=== PATIENT | male | born 1950 | race Caucasian/White ===

== ENCOUNTER → 2016-07-29 | Outpatient (CLI) | payer OTHER ==
[~2016-07-29] MED LIST: ESCI1TAB10 PO; LEVO75TA5 PO; METF500T5 PO; PRVC10 PO; SILD1TAB11 PO
== END | disposition home or self-care (01) ==
LOC: C.LAB 13:21
PROVIDERS: ATTEND Nurse Practitioner Family
DX: R32 Unspecified urinary incontinence (principal); R35.0 Frequency of micturition

== ENCOUNTER 2016-09-16 00:10 | Emergency (ER) | payer OTHER ==
[~2016-09-16] VITALS: Ht 172.7 cm; Wt 77.3 kg
[2016-09-16 00:10] VITALS: TEMP 36.5; Ht 172.7 cm; Wt 77.3 kg
[~2016-09-16 00:10] MED LIST changes: -SILD1TAB11 PO
--- NOTE | 2016-09-16 00:33 | EMERGENCY ROOM VISIT NOTE ---
History Report prepared by Rudy: Gosia Hawkins Under the Supervision of: Dr. Marcia Ware D.O. First contact with patient: 00:17 Chief Complaint: ALCOHOL OVERDOSE Stated Complaint: ALCOHOL OVERDOSE History of Present Illness The patient is a 66 year old male who presents to the Emergency Room with complaints of alcohol overdose starting [employer]. The patient states that he was found on the bathroom after drinking at [facility] and passed out. The patient states that he drank 4 beers tonight and that he normally drinks about 2 beers a day. The patient states that he was out drinking with and old girlfriend but that she left before he went to the bathroom. The patient states that he remembers nothing from the evening. He states that the last thing he remembers was around 4 hours [employer]. The patient states that the first thing he remembers was waking up to the ambulance. He states that he has never passed out due to drinking in the past. The patient states that he has a history of diabetes but does not take insulin and did not check his blood glucose today. The patient states that he does not experiencing withdrawal symptoms if he does not have alcohol. The patient states that recently he has been more depressed but states that he was not trying to harm himself tonight. The patient states he has a past medical history of high cholesterol and thyroid problems. The patient denies any headache or other trauma. 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 Patient denies any other trauma Review of Systems See HPI for pertinent positives & negatives. A total of 10 systems reviewed and were otherwise negative. Past Medical & Surgical Medical Problems: (1) Diabetes (2) High cholesterol Family History Cancer Diabetes mellitus Gallbladder disease Heart disease Social History Smoking Status: Never Smoker Alcohol Use: none Marital Status: single Housing Status: lives alone Occupation Status: employed Current/Historical Medications Scheduled Escitalopram Oxalate (Lexapro), 20 MG PO QAM Levothyroxine Sodium (Levothyroxine Sodium), 75 MCG PO QAM Metformin Hcl Er (Glucophage Er), 1,000 MG PO BID Pravastatin Sod (Pravastatin Sodium), 10 MG PO HS Scheduled PRN Sildenafil Citrate (Viagra), 1 TAB PO UD PRN for ed Allergies Coded Allergies: Cephalosporins (Verified Allergy, Intermediate, RASH, 09/16/16) Sulfa Drugs (Verified Allergy, Mild, RASH, 09/16/16) Physical Exam Vital Signs Date Time Temp Pulse Resp B/P Pulse Ox O2 Delivery O2 Flow Rate FiO2 09/16/16 04:00 75 18 93/50 96 Room Air 09/16/16 02:54 73 17 114/70 93 Room Air 09/16/16 01:30 80 18 122/77 92 Room Air 09/16/16 00:17 70 09/16/16 00:10 36.5 73 20 126/84 99 Room Air Physical Exam General: Patient is pleasant and smells of alcohol. HEENT: Head - normocephalic and atraumatic. Pupils are equal, round, and reactive to light. Extraocular eye muscles are intact, and sclera are anicteric. Nose - moist nasal mucosa without discharge. Mouth - moist buccal mucosa. Oropharynx is nonerythematous and there is no tonsillar exudate or edema noted. Neck: Supple; no JVD, nuchal rigidity, cervical lymphadenopathy. Heart: Regular rate and rhythm. There is a normal S1 and S2 with no murmurs, clicks, or gallops appreciated. Lungs: Clear to auscultation bilaterally with no wheezes, rales, or rhonchi. Abdomen: Soft, completely nontender, nondistended, with good bowel sounds. There are no palpable pulsatile masses or hepatosplenomegaly. There is no guarding, rigidity, or rebound noted. Extremities: No evidence of cyanosis, clubbing, or edema. There are easily palpable peripheral pulses. Skin: warm and dry with good turgor and no rashes. Medical Decision & Procedures ER Provider Diagnostic Interpretation: CT results as stated below per my review and radiologist interpretation: Preliminary Results Only---See Final Report for Complete Findings: CT HEAD: No acute intracranial abnormality. 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 Mild generalized volume loss. Radiologist: Joel Vargas M.D. Study ready at 0109 and initial results transmitted at 0142 Laboratory Results 09/16/16 00:48 Red Blood Count 4.41, Mean Corpuscular Volume 86.8, Mean Corpuscular Hemoglobin 31.5, Mean Corpuscular Hemoglobin Concent 36.3, Mean Platelet Volume 8.3, Neutrophils (%) (Auto) 59.0, Lymphocytes (%) (Auto) 35.2, Monocytes (%) (Auto) 4.0, Eosinophils (%) (Auto) 1.4, Basophils (%) (Auto) 0.2, Neutrophils # (Auto) 3.39, Lymphocytes # (Auto) 2.02, Monocytes # (Auto) 0.23, Eosinophils # (Auto) 0.08, Basophils # (Auto) 0.01 09/16/16 00:48 Test 09/16/16 00:48 09/16/16 02:39 White Blood Count 5.74 K/uL (4.8-10.8) Red Blood Count 4.41 M/uL (4.7-6.1) Hemoglobin 13.9 g/dL (14.0-18.0) Hematocrit 38.3 % (42-52) Mean Corpuscular Volume 86.8 fL (80-100) Mean Corpuscular Hemoglobin 31.5 pg (25-34) Mean Corpuscular Hemoglobin Concent 36.3 g/dl (32-36) Platelet Count 119 K/uL (130-400) Mean Platelet Volume 8.3 fL (7.4-10.4) Neutrophils (%) (Auto) 59.0 % Lymphocytes (%) (Auto) 35.2 % Monocytes (%) (Auto) 4.0 % Eosinophils (%) (Auto) 1.4 % Basophils (%) (Auto) 0.2 % Neutrophils # (Auto) 3.39 K/uL (1.4-6.5) Lymphocytes # (Auto) 2.02 K/uL (1.2-3.4) Monocytes # (Auto) 0.23 K/uL (0.11-0.59) Eosinophils # (Auto) 0.08 K/uL (0-0.5) Basophils # (Auto) 0.01 K/uL (0-0.2) RDW Standard Deviation 42.1 fL (36.4-46.3) RDW Coefficient of Variation 13.1 % (11.5-14.5) Immature Granulocyte % (Auto) 0.2 % Immature Granulocyte # (Auto) 0.01 K/uL (0.00-0.02) Anion Gap 12.0 mmol/L (3-11) Est Creatinine Clear Calc Drug Dose 69.3 ml/min Estimated GFR () 89.9 Estimated GFR (Non- 77.5 BUN/Creatinine Ratio 13.5 (10-20) Calcium Level 8.9 mg/dl (8.5-10.1) Total Bilirubin 0.4 mg/dl (0.2-1) Aspartate Amino Transf (AST/SGOT) 11 U/L (15-37) Alanine Aminotransferase (ALT/SGPT) 21 U/L (12-78) Alkaline Phosphatase 69 U/L (45-117) Total Creatine Kinase 67 U/L (39-308) Creatine Kinase MB 0.8 ng/ml (0.5-3.6) Creatine Kinase MB Ratio 1.2 (0-3.0) Troponin I < 0.015 ng/ml (0-0.045) Total Protein 7.2 gm/dl (6.4-8.2) Albumin 3.8 gm/dl (3.4-5.0) Globulin 3.4 gm/dl (2.5-4.0) Albumin/Globulin Ratio 1.1 (0.9-2) Thyroid Stimulating Hormone (TSH) 1.370 uIu/ml (0.300-4.500) Salicylates Level < 1.7 mg/dl (2.8-20) Acetaminophen Level < 2 ug/ml (10-30) Ethyl Alcohol mg/dL 194.0 mg/dl (0-3) Urine Color YELLOW Urine Appearance CLEAR (CLEAR) Urine pH 6.0 (4.5-7.5) Urine Specific [place] 1.010 (1.000-1.030) Urine Protein NEG (NEG) Urine Glucose (UA) NEG (NEG) Urine Ketones TRACE (NEG) Urine Occult Blood NEG (NEG) Urine Nitrite NEG (NEG) Urine Bilirubin NEG (NEG) Urine Urobilinogen NEG (NEG) Urine Leukocyte Esterase NEG (NEG) Urine Opiates Screen NEG (NEG) Urine Methadone, Qualitative NEG (NEG) Urine Barbiturates NEG (NEG) Urine Phencyclidine (PCP) Level NEG (NEG) Ur Amphetamine/Methamphetamine NEG (NEG) MDMA (Ecstasy) Screen NEG (NEG) Urine Benzodiazepines Screen NEG (NEG) Urine Cocaine Metabolite NEG (NEG) Urine Marijuana (THC) NEG (NEG) Laboratory results per my review. ECG Indication: toxicologic (alcohol overdose) Rate (beats per minute): 68 Rhythm: normal sinus Findings: no acute ischemic change, no ectopy ED Course 0022: Past medical records reviewed. The patient was evaluated in room A10. A complete history and physical exam was performed. Labs were drawn as above. The patient for CT scan of the brain as described above. He was observing the case monitor and pulse oximeter. He had a twelve-lead EKG as described above. 0224: I reevaluated the patient and he was sleeping and hemodynamically stable. 0258: I reevaluated the patient and he was awake. I discussed the results with the patient. He states that he now believes he only had 2 drinks tonight. 0400: Upon reevaluation, the patient is hemodynamically stable. I discussed findings and results with him. He verbalized agreement of the treatment plan. The patient was discharged home. Medical Decision The patient is a 66 year old male who presents to the ED with alcohol overdose. Differential diagnosis includes alcohol overdose, drug intoxication, rhabdomyolysis, suicide attempt. Labs: Salicylates and Tylenol negative Normal Thyroid studies Normal LFTs Negative cardiac enzymes Glucose 143 Normal renal function Slightly anemic hemoglobin 13.9 Normal white blood cell count. Urine Tox Screen Negative Urinalysis positive for ketones. This is a 66-year-old male patient who was found passed out in the bathroom at [facility]. The patient does not remember what happened. He believes that he may have only had between 2 and 4 beers. He thought that he was asleep at home. He denies any trauma. He does admit to being depressed but denies this as being a suicide attempt. His urine tox screen was negative. The patient was given some time sober-appearing the emergency department. He will be discharged home by taxi. I've asked him to stop drinking over the next 1-2 weeks and have close follow-up with his PCP. Impression Primary Impression: Alcohol overdose Additional Impression: Unresponsive episode Scribe Attestation The scribe's documentation has been prepared under my direction and personally reviewed by me in its entirety. I confirm that the note above accurately reflects all work, treatment, procedures, and medical decision making performed by me. Departure Information Dispostion Home / Self-Care Referrals Jina Nino M.D. (PCP) Forms HOME CARE DOCUMENTATION FORM, IMPORTANT VISIT INFORMATION Patient Instructions My [facility] Additional Instructions Rest. Take a bland diet and plenty of clear liquids Avoid alcohol use over the next 1-2 weeks If you feel increasingly depressed, follow up with your PCP or call [facility] - for crisis evaluation Problem Qualifiers
[2016-09-16] MEDS ORDERED: METF500T5 PO (00:51)
[2016-09-16] MEDS ORDERED: SILD1TAB11 PO (00:51)
[2016-09-16 01:01] LABS: BASO % 0.2 %; BASO ABS # 0.01 K/uL (0-0.2); COMPLETE YES; EOS % 1.4 %; HEMATOCRIT 38.3 % (42-52); IG% 0.2 %; LYMPH % 35.2 %; LYMPH ABS # 2.02 K/uL (1.2-3.4); MEAN CELL VOLUME 86.8 fL (80-100); MEAN CORPUSCULAR HEMOGLOBIN 31.5 pg (25-34); MEAN CORPUSCULAR HGB CONC 36.3 g/dl (32-36); MEAN PLATELET VOLUME 8.3 fL (7.4-10.4); PLATELET COUNT 119 K/uL (130-400); RED BLOOD COUNT 4.41 M/uL (4.7-6.1); WHITE BLOOD COUNT 5.74 K/uL (4.8-10.8)
[2016-09-16 01:23] LABS: ALT/SGPT 21 U/L (12-78); AST/SGOT 11 U/L (15-37); BLOOD UREA NITROGEN 13 mg/dl (7-18); BUN/CREATININE RATIO 13.5 (10-20); CALCIUM 8.9 mg/dl (8.5-10.1); CARBON DIOXIDE 24 mmol/L (21-32); CHLORIDE 102 mmol/L (98-107); GLUCOSE 143 mg/dl (70-99); POTASSIUM 3.7 mmol/L (3.5-5.1); SODIUM 138 mmol/L (136-145)
[2016-09-16 01:24] LABS: ACETAMINOPHEN < 2 ug/ml (10-30)
[2016-09-16 01:34] LABS: ALB/GLOB RATIO 1.1 (0.9-2); ALKALINE PHOSPHATASE 69 U/L (45-117); CKMB/CK RATIO 1.2 (0-3.0)
[2016-09-16 02:49] LABS: URINE APPEARANCE CLEAR (CLEAR); URINE BILIRUBIN NEG (NEG); URINE COLOR YELLOW; URINE NITRITE NEG (NEG); UROBILINOGEN NEG (NEG)
[2016-09-16 03:00] LABS: MANUAL MICROSCOPIC REQUIRED? NO; REVIEW REQ? NO
[2016-09-16 03:15] LABS: BENZODIAZEPINE, URINE NEG (NEG); COCAINE,URINE NEG (NEG); PHENCYCLIDINE, URINE NEG (NEG)
[2016-09-16 04:00] VITALS: BP 93/50; PULSE 75; O2SAT 96
--- NOTE | 2016-09-16 07:07 | DIAGNOSTIC IMAGING REPORT ---
CT SCAN OF THE BRAIN WITHOUT IV CONTRAST CLINICAL HISTORY: Change in mental status. Unresponsive episode. COMPARISON STUDY: No priors. TECHNIQUE: Unenhanced axial CT scan of the brain is performed from the vertex to the skull base. CT DOSE: 651.12 mGy.cm FINDINGS: Brain parenchyma: There are age-related involutional changes noting minimal subcortical and periventricular microangiopathic change. There is no hemorrhage, mass effect, or evidence of acute territorial ischemia by CT criteria. Luevano-white matter is preserved. No extra-axial fluid collection is seen. Ventricles, sulci, cisterns: Prominent secondary to involutional change. Megacisterna magna is incidentally noted. Intracranial vasculature: There is mild atherosclerotic calcification of the cavernous carotid arteries. Calvarium: Unremarkable. Sinuses and mastoids: There is trace mucosal thickening within the left maxillary antrum and the left sphenoid sinus. The remaining visualized paranasal sinuses are clear. The mastoid air cells are well pneumatized. Orbits: The bony orbits are grossly intact. IMPRESSION: There is no hemorrhage, mass effect, or evidence of acute territorial ischemia by CT criteria. Electronically signed by: Doc Mckeon M.D. 09/16/2016 7:06 AM Dictated Date/Time: 09/16/2016 7:04 AM
== END 2016-09-16 04:08 | disposition home or self-care (01) ==
LOC: EDBD 00:10 → C.EDA 00:11
DX: T51.0X1A Toxic effect of ethanol, accidental (unintentional), initial encounter (principal); E11.9 Type 2 diabetes mellitus without complications; E78.00 Pure hypercholesterolemia, unspecified; Z88.2 Allergy status to sulfonamides; Z83.3 Family history of diabetes mellitus; Z82.49 Family history of ischemic heart disease and other diseases of the circulatory system; Z79.899 Other long term (current) drug therapy

== ENCOUNTER 2017-07-28 17:11 | Inpatient (IN) | payer OTHER ==
[~2017-07-28] VITALS: Ht 172.7 cm; Wt 80.5 kg
[~2017-07-28 17:11] MED LIST changes: +SILD1TAB11 PO
--- NOTE | 2017-07-28 17:54 | EMERGENCY ROOM VISIT NOTE ---
History Report prepared by Rudy: Marcos Gil Under the Supervision of: Dr. Josh Hayden M.D. First contact with patient: 17:31 Chief Complaint: GI ASSESSMENT Stated Complaint: GALL BLADDER Nursing Triage Summary: patient has been having pain in the abdomen for a couple days in the right mid abdomen. no nausea or vomiting. has been able to drink but unalbe to eat. also with low grade fever and night sweets. general body aches with minor cough and head ache for about 5 days History of Present Illness The patient is a 66 year old white male with a past medical history of anxiety, HTN, DM, HLD, alcohol abuse who presents to the ED with a cc of constant RUQ abdominal soreness beginning 6 days ago. Pt states his symptoms started in his diaphragm, so he took an acid resident care director. He reports his symptoms resolved. Pt notes his symptoms then developed in his RUQ that is localized. He states he has been developing flu-like symptoms for the past 8 days. The patient reports he was evaluated by his PCP today and had an MRI and US performed. He notes his MRI showed gallstones, and he was told to come to the ED per his US results. Positive increased pain with coughing, cough, decreased appetite for the past 6 days, typically consumes two beers a night, short of breath, and weakness. Negative recent bowel movement, alcohol consumption in the past week, recent travel, recent antibiotic use, medication changes, falling, hurting himself, tobacco use. Source of History: patient Onset: 6 days ago Position: abdomen (RUQ) Quality: other (soreness) Timing: constant Modifying Factors (Worsening): other (coughing) Associated Symptoms: + cough, + SOB, + weakness Note: Associated symptoms: decreased appetite Denies: recent bowel movement, recent travel, recent antibiotic use, medication changes, falling, hurting himself Review of Systems See HPI for pertinent positives and negatives. A total of ten systems were reviewed and were otherwise negative. Past Medical & Surgical Medical Problems: (1) Cholecystitis (2) DM type 2 (diabetes mellitus, type 2) (3) Dyslipidemia (4) Hypothyroidism Surgical Problems: (1) H/O discectomy (2) History of inguinal hernia repair, bilateral Family History Cancer Diabetes mellitus Gallbladder disease Heart disease Social History Smoking Status: Never Smoker Alcohol Use: occasionally Marital Status: single Housing Status: lives alone Occupation Status: employed Current/Historical Medications Scheduled Alfuzosin Hcl (Alfuzosin Hcl Er), 1 TAB PO DAILY Aspirin (Aspirin EC Low Dose), 81 MG PO DAILY Escitalopram Oxalate (Lexapro), 20 MG PO QAM Levothyroxine Sodium (Levothyroxine Sodium), 75 MCG PO QAM Metformin Hcl Er (Glucophage Er), 1,000 MG PO BID Pravastatin Sod (Pravastatin Sodium), 10 MG PO HS Scheduled PRN Sildenafil Citrate (Viagra), 1 TAB PO UD PRN for ed Allergies Coded Allergies: Cephalosporins (Verified Allergy, Intermediate, RASH, 07/28/17) Sulfa Drugs (Verified Allergy, Mild, RASH, 07/28/17) Physical Exam Vital Signs Date Time Temp Pulse Resp B/P (MAP) Pulse Ox O2 Delivery O2 Flow Rate FiO2 07/28/17 19:32 79 07/28/17 19:15 86 16 137/86 93 Room Air 07/28/17 17:22 37.0 98 20 119/68 93 Room Air Physical Exam GENERAL: Awake, alert, well-appearing, NAD HENT: Normocephalic, atraumatic. EYES: Normal conjunctiva. Sclera non-icteric. NECK: Supple. No nuchal rigidity. FROM. RESPIRATORY: CTAB, no rhonchi, wheezing, crackles CARDIAC: RRR, no MRG ABDOMEN: Soft, ND, BS+. Reproducible RUQ TTP MSK: No chest wall TTP, no LE edema. No CVA TTP NEURO: GCS 15, CN 2-12 intact, moves all 4s on command SKIN: No rash or jaundice noted. Medical Decision & Procedures ER Provider Diagnostic Interpretation: X-ray: Per my interpretation, radiologist review. CHEST ONE VIEW PORTABLE CLINICAL HISTORY: Pain, radiating to the abdomen. COMPARISON STUDY: Chest x-ray dated 12/11/2011, outside CT scan dated 07/21/2017 FINDINGS: The heart is at the upper limits of normal in size. There is mild elevation of the right hemidiaphragm. There are associated right lower lobe airspace opacities, likely atelectatic although an infectious/inflammatory process could appear similar. A linear opacity at the left lung base is felt to be atelectatic. There is no free intraperitoneal air. IMPRESSION: 1. No evidence of free intraperitoneal air 2. Mild elevation of the right hemidiaphragm with associated right basilar opacities. Electronically signed by: Mario Harris M.D. 07/28/2017 6:30 PM Dictated Date/Time: 07/28/2017 6:28 PM Laboratory Results 07/28/17 18:16 Red Blood Count 4.47, Mean Corpuscular Volume 90.2, Mean Corpuscular Hemoglobin 33.1, Mean Corpuscular Hemoglobin Concent 36.7, Mean Platelet Volume 8.9, Neutrophils (%) (Auto) 85.8, Lymphocytes (%) (Auto) 9.3, Monocytes (%) (Auto) 4.7, Eosinophils (%) (Auto) 0.0, Basophils (%) (Auto) 0.0, Neutrophils # (Auto) 8.34, Lymphocytes # (Auto) 0.90, Monocytes # (Auto) 0.46, Eosinophils # (Auto) 0.00, Basophils # (Auto) 0.00 07/28/17 18:16 Test 07/28/17 18:12 07/28/17 18:16 07/28/17 19:20 Influenza Type A Antigen Neg for Influ A (NEG) Influenza Type B Antigen Neg for Influ B (NEG) White Blood Count 9.72 K/uL (4.8-10.8) Red Blood Count 4.47 M/uL (4.7-6.1) Hemoglobin 14.8 g/dL (14.0-18.0) Hematocrit 40.3 % (42-52) Mean Corpuscular Volume 90.2 fL (80-100) Mean Corpuscular Hemoglobin 33.1 pg (25-34) Mean Corpuscular Hemoglobin Concent 36.7 g/dl (32-36) Platelet Count 145 K/uL (130-400) Mean Platelet Volume 8.9 fL (7.4-10.4) Neutrophils (%) (Auto) 85.8 % Lymphocytes (%) (Auto) 9.3 % Monocytes (%) (Auto) 4.7 % Eosinophils (%) (Auto) 0.0 % Basophils (%) (Auto) 0.0 % Neutrophils # (Auto) 8.34 K/uL (1.4-6.5) Lymphocytes # (Auto) 0.90 K/uL (1.2-3.4) Monocytes # (Auto) 0.46 K/uL (0.11-0.59) Eosinophils # (Auto) 0.00 K/uL (0-0.5) Basophils # (Auto) 0.00 K/uL (0-0.2) RDW Standard Deviation 42.3 fL (36.4-46.3) RDW Coefficient of Variation 12.9 % (11.5-14.5) Immature Granulocyte % (Auto) 0.2 % Immature Granulocyte # (Auto) 0.02 K/uL (0.00-0.02) Anion Gap 9.0 mmol/L (3-11) Est Creatinine Clear Calc Drug Dose 44.7 ml/min Estimated GFR () 52.9 Estimated GFR (Non- 45.6 BUN/Creatinine Ratio 16.9 (10-20) Calcium Level 8.8 mg/dl (8.5-10.1) Magnesium Level 2.4 mg/dl (1.8-2.4) Total Bilirubin 1.0 mg/dl (0.2-1) Direct Bilirubin 0.4 mg/dl (0-0.2) Aspartate Amino Transf (AST/SGOT) 32 U/L (15-37) Alanine Aminotransferase (ALT/SGPT) 35 U/L (12-78) Alkaline Phosphatase 109 U/L (45-117) Total Protein 7.8 gm/dl (6.4-8.2) Albumin 2.7 gm/dl (3.4-5.0) Lipase 128 U/L (73-393) Thyroid Stimulating Hormone (TSH) 4.210 uIu/ml (0.300-4.500) Urine Color ORANGE Urine Appearance CLOUDY (CLEAR) Urine pH 5.0 (4.5-7.5) Urine Specific [place] 1.028 (1.000-1.030) Urine Protein 3+ (NEG) Urine Glucose (UA) NEG (NEG) Urine Ketones 1+ (NEG) Urine Occult Blood NEG (NEG) Urine Nitrite POS (NEG) Urine Bilirubin NEG (NEG) Urine Urobilinogen POS (NEG) Urine Leukocyte Esterase TRACE (NEG) Urine WBC (Auto) 5-10 /hpf (0-5) Urine RBC (Auto) 0-4 /hpf (0-4) Urine Hyaline Casts (Auto) 10-30 /lpf (0-5) Urine Epithelial Cells (Auto) >30 /lpf (0-5) Urine Bacteria (Auto) NEG (NEG) Urine Renal Epithelial Cells /lpf (0-5) Urine Pathogenic Casts 1-5 GRANULAR CASTS /lpf (0) Urine Mucus PRESENT (NONE PRSENT) Urine Yeast (Auto) (NONE PRSENT) Laboratory results reviewed by me Medications Administered Medications (Trade) Dose Ordered Sig/Evens Route Start Time Stop Time Status Last Admin Dose Admin Potassium Chloride (Klor-Con M10) 40 meq NOW STAT PO 07/28/17 19:44 07/28/17 20:48 DC 07/28/17 21:50 40 MEQ ED Course 1733: The patient was evaluated in room A04B. A complete history and physical exam was performed. 1916: I reevaluated the patient. He is resting comfortably. I discussed his exam findings and treatment plan. He agreed to the treatment plan. The patient will be evaluated for further management and care. 1927: I discussed the patient's case with Dr. Basurto, General Surgery. They will evaluate the patient but requested he also be evaluated by medicine. 1946: I discussed the patient's [facility] The patient will be evaluated for further management and care. Medical Decision The patient is a 66 year old white male with a past medical history of anxiety, HTN, DM, HLD, alcohol abuse who presents to the ED with a cc of constant RUQ abdominal soreness beginning 6 days ago. Differential diagnosis: Etiologies such as appendicitis, diverticulitis, PUD, biliary pathology, UTI, pancreatitis, obstruction, mesenteric ischemia, aortic pathology, infections, inflammatory bowel disease, renal colic, as well as others were entertained. Patient was seen and evaluated the bedside. Patient was complaints of right upper quadrant pain and did have an outpatient ultrasound. Upon reviewing the ultrasound the patient does have findings consistent with acute cholecystitis as the patient does have some gallbladder wall thickness, pericholecystic fluid , and a dilated CBD at 13 mm. Patient did have blood work that was completed. Patient did have mild elevation in his d bili. Patient's other labs fairly unremarkable. Patient was given some Cipro and Flagyl as he does have cephalosporin allergy. I did contact the on-call surgeon who requested a medical admission and preoperative clearance. I did speak with the medicine service who agreed to evaluate and treat the patient. Medication Reconcilliation Current Medication List: was personally reviewed by me Blood Pressure Screening Patient's blood pressure: Elevated blood pressure Blood pressure disposition: Elevated BP felt to be situational Consults Time Called: 1911 Consulting Physician: Dr. Basurto, General Surgery Returned Call: 1927 I discussed the patient's case with Dr. Basurto, General Surgery. They will evaluate the patient but requested he also be evaluated by medicine. Additional Consults: Time Called: 1935 Consulted Physician: Terell Orta Hospitalist Returned Call: 1946 Additional Comments: I [facility] the patient's [facility] The patient will be evaluated for further management and care. Impression Primary Impression: Acute cholecystitis Additional Impressions: RUQ abdominal pain Hyponatremia Chronic alcohol abuse Scribe Attestation The scribe's documentation has been prepared under my direction and personally reviewed by me in its entirety. I confirm that the note above accurately reflects all work, treatment, procedures, and medical decision making performed by me. Departure Information Dispostion Being Evaluated By Hospitalist Referrals Brown Brown D.O. (PCP) Patient Instructions My [facility] Problem Qualifiers
--- NOTE | 2017-07-28 18:31 | DIAGNOSTIC IMAGING REPORT ---
CHEST ONE VIEW PORTABLE CLINICAL HISTORY: Pain, radiating to the abdomen. COMPARISON STUDY: Chest x-ray dated 12/11/2011, outside CT scan dated 07/21/2017 FINDINGS: The heart is at the upper limits of normal in size. There is mild elevation of the right hemidiaphragm. There are associated right lower lobe airspace opacities, likely atelectatic although an infectious/inflammatory process could appear similar. A linear opacity at the left lung base is felt to be atelectatic. There is no free intraperitoneal air. IMPRESSION: 1. No evidence of free intraperitoneal air 2. Mild elevation of the right hemidiaphragm with associated right basilar opacities. Electronically signed by: Mario Harris M.D. 07/28/2017 6:30 PM Dictated Date/Time: 07/28/2017 6:28 PM
[2017-07-28 18:47] LABS: HEMATOCRIT 40.3 % (42-52); HEMOGLOBIN 14.8 g/dL (14.0-18.0); IG# 0.02 K/uL (0.00-0.02); LYMPH % 9.3 %; MEAN CELL VOLUME 90.2 fL (80-100); MEAN CORPUSCULAR HEMOGLOBIN 33.1 pg (25-34); MEAN CORPUSCULAR HGB CONC 36.7 g/dl (32-36); MEAN PLATELET VOLUME 8.9 fL (7.4-10.4); MONO % 4.7 %; MONO ABS # 0.46 K/uL (0.11-0.59); NEUT % 85.8 %; NEUT ABS # 8.34 K/uL (1.4-6.5); PLATELET COUNT 145 K/uL (130-400); RED CELL DISTRIBUTION WIDTH CV 12.9 % (11.5-14.5); RED CELL DISTRIBUTION WIDTH SD 42.3 fL (36.4-46.3); WHITE BLOOD COUNT 9.72 K/uL (4.8-10.8)
[2017-07-28 18:48] LABS: ALBUMIN 2.7 gm/dl (3.4-5.0); CALCIUM 8.8 mg/dl (8.5-10.1); CREATININE 1.55 mg/dl (0.60-1.40); POTASSIUM 3.3 mmol/L (3.5-5.1)
[2017-07-28 18:51] LABS: TOTAL PROTEIN 7.8 gm/dl (6.4-8.2)
[2017-07-28 18:57] LABS: INFLUENZA B ANTIGEN Neg for Influ B (NEG)
[2017-07-28] MEDS ORDERED: METRONIDAZOLE 500MG / 100ML NSS IV STA (19:30)
[2017-07-28] MEDS ORDERED: CIPROFLOXACIN 400MG / 200ML D5W IV STA (19:30)
[2017-07-28] MEDS ORDERED: POTASSIUM CHLORIDE 10 MEQ TABCR PO STA (19:44)
[2017-07-28] MEDS ORDERED: ALFU1TAB2 PO (20:09)
[2017-07-28] MEDS ORDERED: ASPEC81 PO (20:09)
--- NOTE | 2017-07-28 20:31 | History and Physical ---
History & Physical Date & Time of Service: Jul 28, 2017 ~ 20:00 Chief Complaint: Referred by PCP for Gallbladder Primary Care Physician: Brown Brown D.O. History of Present Illness 66 year old male who presents to the ED by referral of his PCP after outpatient US was positive for acute cholecystitis. Patient reports he has been sick for the past 8 days. Initially starting with cough, congestion, and headache. Dry non productive cough persists. Shortly after he developed mid epigastric pain that was relieved with TUMS. He then developed RUQ pain. He has had a very poor appetite and has had very little to eat or drinks. He denies nausea, vomiting, or diarrhea. He has had chills and episodes of diaphoresis but did not take his temperature. He denies chest pain and shortness of breath. No lightheadedness, dizziness, or syncopal event. No urinary symptoms. Patient saw his PCP today who ordered an outpatient RUQ US that showed acute cholecystitis. He was then referred to the ED for further evaluation. In the ED, labs show an ASHLEE and hyponatremia. Vitals are stable. Past Medical/Surgical History Medical Problems: (1) DM type 2 (diabetes mellitus, type 2) Status: Chronic (2) Dyslipidemia Status: Chronic (3) Hypothyroidism Status: Chronic Surgical Problems: (1) H/O discectomy Status: Chronic (2) History of inguinal hernia repair, bilateral Status: Chronic Family History Diabetes mellitus MOTHER FH: prostate cancer FATHER Social History Smoking Status: Never Smoker Alcohol Use: 1-2 beers/day Immunizations History of Influenza Vaccine: Yes Influenza Vaccine Date: Mar 31, 2017 History of Tetanus Vaccine?: Yes Tetanus Immunization Date: Jan 08, 2010 History of Pneumococcal: Yes Pneumococcal Date: Feb 15, 2016 Multi-Drug Resistant Organisms History of MDRO: No Allergies Coded Allergies: Cephalosporins (Verified Allergy, Intermediate, RASH, 07/28/17) Sulfa Drugs (Verified Allergy, Mild, RASH, 07/28/17) Home Medications Scheduled Alfuzosin Hcl (Alfuzosin Hcl Er), 1 TAB PO DAILY Aspirin (Aspirin EC Low Dose), 81 MG PO DAILY Escitalopram Oxalate (Lexapro), 20 MG PO QAM Levothyroxine Sodium (Levothyroxine Sodium), 75 MCG PO QAM Metformin Hcl Er (Glucophage Er), 1,000 MG PO BID Pravastatin Sod (Pravastatin Sodium), 10 MG PO HS Scheduled PRN Sildenafil Citrate (Viagra), 1 TAB PO UD PRN for ed Review of Systems ROS per HPI, all other systems reviewed and negative Physical Exam Vital Signs Date Time Temp Pulse Resp B/P (MAP) Pulse Ox O2 Delivery O2 Flow Rate FiO2 07/28/17 19:32 79 07/28/17 19:15 86 16 137/86 93 Room Air 07/28/17 17:22 37.0 98 20 119/68 93 Room Air General Appearance: WD/WN, no apparent distress Head: normocephalic, atraumatic Eyes: normal inspection, EOMI, sclerae normal ENT: hearing grossly normal, + pertinent finding (mucous membranes dry) Neck: supple, no JVD, trachea midline Respiratory/Chest: lungs clear, normal breath sounds, no respiratory distress Cardiovascular: regular rate, rhythm, no edema, normal peripheral pulses Abdomen/GI: normal bowel sounds, soft, no organomegaly, + tenderness (RUQ) Extremities/Musculoskelatal: normal inspection, no calf tenderness, normal capillary refill Neurologic/Psych: no motor/sensory deficits, alert, normal mood/affect, oriented x 3 Skin: normal color, warm/dry Diagnostics Laboratory Results Results Past 24 Hours Test 07/28/17 18:12 07/28/17 18:16 07/28/17 19:20 Range/Units Influenza Type A Antigen Neg for Influ A NEG Influenza Type B Antigen Neg for Influ B NEG White Blood Count 9.72 4.8-10.8 K/uL Red Blood Count 4.47 4.7-6.1 M/uL Hemoglobin 14.8 14.0-18.0 g/dL Hematocrit 40.3 42-52 % Mean Corpuscular Volume 90.2 80-100 fL Mean Corpuscular Hemoglobin 33.1 25-34 pg Mean Corpuscular Hemoglobin Concent 36.7 32-36 g/dl Platelet Count 145 130-400 K/uL Mean Platelet Volume 8.9 7.4-10.4 fL Neutrophils (%) (Auto) 85.8 % Lymphocytes (%) (Auto) 9.3 % Monocytes (%) (Auto) 4.7 % Eosinophils (%) (Auto) 0.0 % Basophils (%) (Auto) 0.0 % Neutrophils # (Auto) 8.34 1.4-6.5 K/uL Lymphocytes # (Auto) 0.90 1.2-3.4 K/uL Monocytes # (Auto) 0.46 0.11-0.59 K/uL Eosinophils # (Auto) 0.00 0-0.5 K/uL Basophils # (Auto) 0.00 0-0.2 K/uL RDW Standard Deviation 42.3 36.4-46.3 fL RDW Coefficient of Variation 12.9 11.5-14.5 % Immature Granulocyte % (Auto) 0.2 % Immature Granulocyte # (Auto) 0.02 0.00-0.02 K/uL Sodium Level 129 136-145 mmol/L Potassium Level 3.3 3.5-5.1 mmol/L Chloride Level 95 98-107 mmol/L Carbon Dioxide Level 25 21-32 mmol/L Anion Gap 9.0 3-11 mmol/L Blood Urea Nitrogen 26 7-18 mg/dl Creatinine 1.55 0.60-1.40 mg/dl Est Creatinine Clear Calc Drug Dose 44.7 ml/min Estimated GFR () 52.9 Estimated GFR (Non- 45.6 BUN/Creatinine Ratio 16.9 10-20 Random Glucose 139 70-99 mg/dl Calcium Level 8.8 8.5-10.1 mg/dl Magnesium Level 2.4 1.8-2.4 mg/dl Total Bilirubin 1.0 0.2-1 mg/dl Direct Bilirubin 0.4 0-0.2 mg/dl Aspartate Amino Transf (AST/SGOT) 32 15-37 U/L Alanine Aminotransferase (ALT/SGPT) 35 12-78 U/L Alkaline Phosphatase 109 45-117 U/L Total Protein 7.8 6.4-8.2 gm/dl Albumin 2.7 3.4-5.0 gm/dl Lipase 128 73-393 U/L Urine Color ORANGE Urine Appearance CLOUDY CLEAR Urine pH 5.0 4.5-7.5 Urine Specific [place] 1.028 1.000-1.030 Urine Protein 3+ NEG Urine Glucose (UA) NEG NEG Urine Ketones 1+ NEG Urine Occult Blood NEG NEG Urine Nitrite POS NEG Urine Bilirubin NEG NEG Urine Urobilinogen POS NEG Urine Leukocyte Esterase TRACE NEG Urine WBC (Auto) 5-10 0-5 /hpf Urine RBC (Auto) 0-4 0-4 /hpf Urine Hyaline Casts (Auto) 10-30 0-5 /lpf Urine Epithelial Cells (Auto) >30 0-5 /lpf Urine Bacteria (Auto) NEG NEG Urine Renal Epithelial Cells 0-5 /lpf Urine Pathogenic Casts 1-5 GRANULAR CASTS 0 /lpf Urine Mucus PRESENT NONE PRSENT Urine Yeast (Auto) NONE PRSENT Microbiology Results 07/28/17 Urine Culture, Received Pending Diagnostic Radiology RUQ US (outpatient) IMPRESSION 1. Cholelithiasis, positive sonographic Wasserman's sign, diffusely thickened gallbladder wall and pericholecystic fluid and findings of gallbladder hydrops with nonmobile stone in the neck of the gallbladder. Findings are suggestive of acute cholecystitis. Findings were discussed with the referring clinician Dr. Cardenas at 4:15 p.m. on 07/28/2017 who expressed understanding. Surgical consultation and follow-up advised. 2. Dilated common bile duct measuring up to 13 mm in the iggy hepatis. The distal portion of the common bile duct is not visualized. Distal obstruction is not excluded. Correlation with obstructive enzymes would be helpful. 3. 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 4. Diffusely increased echogenicity of the liver. Nonspecific finding. Fatty infiltration is a consideration among other diffuse hepatocellular processes. 5. Normal sonographic evaluation of right kidney. 6. Limited evaluation of pancreas. CXR IMPRESSION: 1. No evidence of free intraperitoneal air 2. Mild elevation of the right hemidiaphragm with associated right basilar opacities. Impression Assessment and Plan ACUTE CHOLECYSTITIS - outpatient US as above - surgery notified by ED - labs do not suggest CBD obstruction - s/p Cipro and Flagyl in the ED, will continue with Unasyn - NPO ASHLEE, HYPONATREMIA, HYPOKALEMIA - prerenal due to poor PO intake - IVF, replace K+, follow labs DM - hgb a1c 5.7 01/2017 - hold oral agents and utilize SSI while hospitalized HYPOTHYROIDISM - continue levothyroxine DVT PROPHYLAXIS - SCDs due to invasive procedure DISPO - In my clinical judgment this beneficiary meets acute admission criteria, established by [facility], that includes being hospitalized through two midnights. Assessment/Plan IM ATTENDING : Patient seen and examined. History obtained form the patient and records. Preceding documentation by ARNOLD Mak, reviewed. FINAL ASSESSMENT AND PLAN as follows: 1. Acute calculous cholecystitis, no sepsis. 2. Hypokalemia. Acute renal failure. clinical dehydration secondary to illness. 3. DM 2 on oral medications well controlled as of recent outpx HgA1c of 5.7 last January 2017. 6. daily alcohol intake as per records. Patient denies abuse. GMF Unasyn. Surgery consult. RE acute cholecystitis (ER provider already in touch with Dr. Basurto, surgeon on-call who requested for a preop medical evaluation.) No medical contraindication to contemplated procedure. replace potassium. Monitor creatinine response to IV fluids ISS BG goal 140-180. DT precautions. DVT prophylaxis, Heparin subQ. Full code.
[2017-07-28] MEDS ORDERED: AMPICILLIN/SULBACTAM SOD INJ 3,000 MG in SODIUM CHLORIDE 0.9% 100ML 100 ML IV SCH (21:00)
[2017-07-28] MEDS ORDERED: INSULIN ASPART 100 UNITS/ML 3 ML PEN SC ONE ×2 (21:05→22:57)
[2017-07-28] MEDS ORDERED: THIAMINE HCL 100 MG/ML 2 ML VIAL IV STA (21:05)
[2017-07-28] MEDS ORDERED: GLUCOSE 10 TABS/TUBE PO PRN (21:15)
[2017-07-28] MEDS ORDERED: DEXTROSE 50% 50 ML SYR IV PRN (21:15)
[2017-07-28] MEDS ORDERED: GLUCOSE 40% GEL 15 GM TUBE PO PRN (21:15)
[2017-07-28] MEDS ORDERED: PROCHLORPERAZINE INJ 5 MG in SYRINGE 4 ML IV PRN (21:15)
[2017-07-28] MEDS ORDERED: ACETAMINOPHEN 325 MG TAB PO PRN (21:15)
[2017-07-28] MEDS ORDERED: GLUCAGON FOR INJ 1 MG VIAL SQ PRN (21:15)
[2017-07-28] MEDS ORDERED: LORAZEPAM 2 MG/ML 1 ML VIAL IV PRN (21:15)
[2017-07-28] MEDS ORDERED: GABAPENTIN 600 MG TAB PO SCH (21:15)
[2017-07-28] MEDS ORDERED: CIPROFLOXACIN 400MG / 200ML D5W ONE (21:43)
[2017-07-28] MEDS ORDERED: METRONIDAZOLE 500MG / 100ML NSS ONE (21:43)
--- NOTE | 2017-07-28 21:53 | Surgery Consultation ---
Consultation Date of Consultation: Jul 28, 2017. Attending Physician: History of Present Illness 66 year old male who presents to the ED by referral of his PCP after outpatient US was positive for acute cholecystitis. Patient reports he has been sick for the past 8 days. Initially starting with cough, congestion, and headache. Dry non productive cough persists. Shortly after he developed mid epigastric pain that was relieved with TUMS. He then developed RUQ pain. He has had a very poor appetite and has had very little to eat or drinks. He denies nausea, vomiting, or diarrhea. He has had chills and episodes of diaphoresis but did not take his temperature. He denies chest pain and shortness of breath. No lightheadedness, dizziness, or syncopal event. No urinary symptoms. Patient saw his PCP today who ordered an outpatient RUQ US that showed acute cholecystitis. He was then referred to the ED for further evaluation. In the ED, labs show an ASHLEE and hyponatremia. Vitals are stable. I reviewed pt's H/P with pt, pt is still have RUQ pain, with some nausea, no vomiting, some lower T, pt denies diarrhea, Past Medical/Surgical History Medical Problems: (1) Alcohol overdose Status: Acute (2) Encounter for removal of sutures Status: Acute (3) Encounter for removal of sutures Status: Acute (4) Unresponsive episode Status: Acute Family History Diabetes mellitus MOTHER FH: prostate cancer FATHER Social History Smoking Status: Never Smoker Smokeless Tobacco Use: No Alcohol Use: none Drug Use: none Housing Status: lives alone Allergies Coded Allergies: Cephalosporins (Verified Allergy, Intermediate, RASH, 07/28/17) Sulfa Drugs (Verified Allergy, Mild, RASH, 07/28/17) Home Medications Scheduled Alfuzosin Hcl (Alfuzosin Hcl Er), 1 TAB PO DAILY Aspirin (Aspirin EC Low Dose), 81 MG PO DAILY Escitalopram Oxalate (Lexapro), 20 MG PO QAM Levothyroxine Sodium (Levothyroxine Sodium), 75 MCG PO QAM Metformin Hcl Er (Glucophage Er), 1,000 MG PO BID Pravastatin Sod (Pravastatin Sodium), 10 MG PO HS Scheduled PRN Sildenafil Citrate (Viagra), 1 TAB PO UD PRN for ed Current Inpatient Medications Current Inpatient Medications Medications (Trade) Dose Ordered Sig/[place] Route Start Time Stop Time Status Last Admin Dose Admin Ampicillin Sodium/ Sulbactam Sodium 3000 mg/Sodium Chloride 108 ml @ 200 mls/hr 2100 IV 07/28/17 21:00 07/28/17 23:00 Potassium Chloride/Sodium Chloride 1,000 ml @ 75 mls/hr [id number] IV 07/28/17 19:45 08/27/17 19:44 UNV Heparin Sodium (Porcine) (Heparin Sq 5000 Unit/0.5ml) 5,000 unit Q8H SQ 07/28/17 21:15 08/27/17 21:14 UNV Acetaminophen (Tylenol Tab) 650 mg Q4H PRN PO 07/28/17 21:15 08/27/17 21:14 UNV Insulin Aspart (novoLOG ASPART) SLIDING SCALE If C... ACHS SC 07/29/17 07:00 08/28/17 06:59 UNV Glucose (Glucose 40% Gel) 15-30 GRAMS 15 GRAMS... UD PRN PO 07/28/17 21:15 08/27/17 21:14 UNV Glucose (Glucose Chew Tab) 4-8 Tablets 4 Tabl... UD PRN PO 07/28/17 21:15 08/27/17 21:14 UNV Dextrose (Dextrose 50% 50ML Syringe) 25-50ML OF 50% DW IV FOR... UD PRN IV 07/28/17 21:15 08/27/17 21:14 UNV Glucagon (Glucagon Inj) 1 mg UD PRN SQ 07/28/17 21:15 08/27/17 21:14 UNV Hydromorphone HCl (Dilaudid Inj) 0.5 mg Q3H PRN IV 07/28/17 21:15 08/11/17 21:14 UNV Oxycodone/ Acetaminophen (Percocet 5-325mg Tab) 1 tab Q6H PRN PO 07/28/17 21:15 08/11/17 21:14 UNV Prochlorperazine Edisylate 5 mg/ Syringe 5 ml @ 5 mls/min Q6H PRN IV 07/28/17 21:15 08/27/17 21:14 UNV Thiamine HCl (Vitamin B-1 Inj) 100 mg NOW STAT IV 07/28/17 21:05 07/28/17 21:06 UNV Thiamine HCl (Vitamin B-1 Tab) 100 mg QAM PO 07/29/17 09:00 08/28/17 08:59 UNV Multivitamins (Multivitamin Tab) 1 tab QAM PO 07/29/17 09:00 08/28/17 08:59 UNV Folic Acid (Folvite Tab) 1 mg QAM PO 07/29/17 09:00 08/28/17 08:59 UNV Miscellaneous Information (Pharmacy Consult) 1 ea DAILY N/A 07/29/17 09:00 08/28/17 08:59 UNV Escitalopram Oxalate (Lexapro Tab) 20 mg QAM PO 07/29/17 09:00 08/28/17 08:59 UNV Levothyroxine Sodium (Synthroid Tab) 75 mcg QAM PO 07/29/17 09:00 08/28/17 08:59 UNV Pravastatin Sodium (Pravachol Tab) 10 mg HS PO 07/29/17 21:00 08/28/17 20:59 UNV Insulin Aspart (novoLOG ASPART) SLIDING SCALE If C... 2105 ONCE SC 07/28/17 21:05 07/28/17 21:06 UNV Gabapentin (Neurontin Tab) 1,200 mg SEE PROTOCOL TEXT PO 07/28/17 21:15 08/27/17 21:14 UNV Lorazepam (Ativan Inj) PRN Dosing -Active Protocol Q1H PRN IV 07/28/17 21:15 08/27/17 21:14 UNV Review of Systems Constitutional: + fever, + chills Eyes: No worsening of vision, No eye pain, No redness, No discharge, No diplopia, No problem reported ENT: No hearing loss, No unusual epistaxis, No nasal symptoms, No sore throat, No tinnitus, No dental problems, No trouble swallowing, No problem reported Respiratory: No cough, No sputum, No wheezing, No shortness of breath, No dyspnea on exertion, No dyspnea at rest, No hemoptysis, No problem reported Cardiovascular: No chest pain, No orthopnea, No PND, No edema, No claudication , No palpitations, No problem reported Abdomen: + pain, + nausea, No vomiting, No diarrhea, No constipation, No GI bleeding, No problem reported Musculoskeletal: No joint pain, No muscle pain, No swelling, No calf pain, No problem reported Genitourinary - Male: No hematuria, No dysuria, No urinary frequency, No urinary urgency, No urinary hesitancy, No urinary retention, No urinary incontinence, No penile discharge, No lesions, No impotence, No problem reported Neurologic: No memory loss, No paralysis, No weakness, No numbness/tingling, No vertigo, No balance problems, No problem reported Psychiatric: No depression symptoms, No anhedonism, No anxiety, No insomnia, No substance abuse, No problem reported Endocrine: + problem reported (DM), No fatigue, No excessive thirst, No excessive urination Hematologic / Lymphatic: No abnormal bleeding/bruising, No clotting problems, No swollen lymph nodes, No night sweats, No problem reported Integumentary: No rash, No itch, No new/changing skin lesions, No color change , No bleeding, No problem reported Physical Exam Date Time Temp Pulse Resp B/P (MAP) Pulse Ox O2 Delivery O2 Flow Rate FiO2 07/28/17 19:32 79 07/28/17 19:15 86 16 137/86 93 Room Air 07/28/17 17:22 37.0 98 20 119/68 93 Room Air General Appearance: WD/WN, no apparent distress Head: normocephalic Eyes: normal inspection ENT: normal ENT inspection Neck: supple, no JVD Respiratory/Chest: chest non-tender, lungs clear, normal breath sounds Cardiovascular: regular rate, rhythm, no edema, no gallop, no JVD, no murmur Abdomen/GI: normal bowel sounds, soft, no organomegaly, no pulsatile mass, normal rectal exam, + tenderness (at RUQ, no rebound pain) Extremities/Musculoskelatal: normal inspection, no calf tenderness, normal capillary refill Neurologic/Psych: no motor/sensory deficits, alert, normal mood/affect Skin: normal color, warm/dry, no rash Lymphatic: no adenopathy Laboratory Results Last 24 Hours Test 07/28/17 18:12 07/28/17 18:16 07/28/17 19:20 Influenza Type A Antigen Neg for Influ A Influenza Type B Antigen Neg for Influ B White Blood Count 9.72 K/uL Red Blood Count 4.47 M/uL Hemoglobin 14.8 g/dL Hematocrit 40.3 % Mean Corpuscular Volume 90.2 fL Mean Corpuscular Hemoglobin 33.1 pg Mean Corpuscular Hemoglobin Concent 36.7 g/dl Platelet Count 145 K/uL Mean Platelet Volume 8.9 fL Neutrophils (%) (Auto) 85.8 % Lymphocytes (%) (Auto) 9.3 % Monocytes (%) (Auto) 4.7 % Eosinophils (%) (Auto) 0.0 % Basophils (%) (Auto) 0.0 % Neutrophils # (Auto) 8.34 K/uL Lymphocytes # (Auto) 0.90 K/uL Monocytes # (Auto) 0.46 K/uL Eosinophils # (Auto) 0.00 K/uL Basophils # (Auto) 0.00 K/uL RDW Standard Deviation 42.3 fL RDW Coefficient of Variation 12.9 % Immature Granulocyte % (Auto) 0.2 % Immature Granulocyte # (Auto) 0.02 K/uL Sodium Level 129 mmol/L Potassium Level 3.3 mmol/L Chloride Level 95 mmol/L Carbon Dioxide Level 25 mmol/L Anion Gap 9.0 mmol/L Blood Urea Nitrogen 26 mg/dl Creatinine 1.55 mg/dl Est Creatinine Clear Calc Drug Dose 44.7 ml/min Estimated GFR () 52.9 Estimated GFR (Non- 45.6 BUN/Creatinine Ratio 16.9 Random Glucose 139 mg/dl Calcium Level 8.8 mg/dl Magnesium Level 2.4 mg/dl Total Bilirubin 1.0 mg/dl Direct Bilirubin 0.4 mg/dl Aspartate Amino Transf (AST/SGOT) 32 U/L Alanine Aminotransferase (ALT/SGPT) 35 U/L Alkaline Phosphatase 109 U/L Total Protein 7.8 gm/dl Albumin 2.7 gm/dl Lipase 128 U/L Thyroid Stimulating Hormone (TSH) 4.210 uIu/ml Urine Color ORANGE Urine Appearance CLOUDY Urine pH 5.0 Urine Specific [place] 1.028 Urine Protein 3+ Urine Glucose (UA) NEG Urine Ketones 1+ Urine Occult Blood NEG Urine Nitrite POS Urine Bilirubin NEG Urine Urobilinogen POS Urine Leukocyte Esterase TRACE Urine WBC (Auto) 5-10 /hpf Urine RBC (Auto) 0-4 /hpf Urine Hyaline Casts (Auto) 10-30 /lpf Urine Epithelial Cells (Auto) >30 /lpf Urine Bacteria (Auto) NEG Urine Renal Epithelial Cells /lpf Urine Pathogenic Casts 1-5 GRANULAR CASTS /lpf Urine Mucus PRESENT Urine Yeast (Auto) Assessment & Plan Assessment, pt is a 66 uriel old male who presents to Er with 5 days history RUQ pain, pt had U/s study- acute cholecystitis, cholelithiasis, IMP: acute cholecystitis, with cholelithiasis, Plan, pt is admitted to hospital by hospitalist, NPO, repeat labs in AM, CBC, CMP, lipase, amylase pt will go to OR for laparoscopic cholecystectomy, possible open or cholangiogram, D/W benefits, risks and alternatives of the procedure, the risks -infection,bleeding. injury CBD, Bowel, may need ERCP, MD, DVT, stroke, subtotal cholecystectomy., pt understood, he agrees with the plan, I answered all questions,
--- NOTE | 2017-07-28 21:55 | HISTORY & PHYSICAL EXAMINATION ---
DATE OF ADMISSION: 07/28/2017 IM ATTENDING : Patient seen and examined. History obtained form the patient and records. Preceding documentation by ARNOLD Mak, reviewed. FINAL ASSESSMENT AND PLAN as follows: 1. Acute calculous cholecystitis, no sepsis. 2. Hypokalemia. Acute renal failure. clinical dehydration secondary to illness. 3. DM 2 on oral medications well controlled as of recent outpx HgA1c of 5.7 last January 2017. 6. daily alcohol intake as per records. Patient denies abuse. GMF Unasyn. Surgery consult. RE acute cholecystitis (ER provider already in touch with Dr. Basurto, surgeon on-call who requested for a preop medical evaluation.) No medical contraindication to contemplated procedure. replace potassium. Monitor creatinine response to IV fluids ISS BG goal 140-180. DT precautions. DVT prophylaxis, Heparin subQ. Full code. MTDD
[2017-07-28 22:38] VITALS: BP 131/75; PULSE 84; TEMP 37.7; Ht 172.7 cm; Wt 80.5 kg
[2017-07-28 22:51] VITALS: PULSE 60; TEMP 36.4
[2017-07-28] MEDS ORDERED: THIAMINE HCL INJ 100 MG in SYRINGE 9 ML IV ONE (23:00)
[2017-07-28] MEDS: GABAPENTIN 1200MG LOADING DOSE PO ONE (23:30)
[2017-07-29] VITALS (7 sets, daily range): BP systolic 110–142; BP diastolic 67–87; PULSE 72–80; TEMP 36.6–37.9; O2SAT 84–96
[2017-07-29] MEDS: NSS + 20MEQ KCL 1000ML 1,000 ML IV SCH ×3 (00:27→20:45)
[2017-07-29] MEDS: GABAPENTIN 1200MG LOADING DOSE PO ONE (00:30)
[2017-07-29 05:41] LABS: BASO % 0.1 %; BASO ABS # 0.01 K/uL (0-0.2); EOS % 0.2 %; EOS ABS # 0.02 K/uL (0-0.5); HEMATOCRIT 37.8 % (42-52); HEMOGLOBIN 13.5 g/dL (14.0-18.0); IG# 0.02 K/uL (0.00-0.02); LYMPH % 9.8 %; LYMPH ABS # 0.87 K/uL (1.2-3.4); MEAN CELL VOLUME 91.1 fL (80-100); MEAN CORPUSCULAR HEMOGLOBIN 32.5 pg (25-34); MEAN CORPUSCULAR HGB CONC 35.7 g/dl (32-36); MEAN PLATELET VOLUME 8.7 fL (7.4-10.4); MONO % 6.1 %; MONO ABS # 0.54 K/uL (0.11-0.59); NEUT % 83.6 %; PLATELET COUNT 147 K/uL (130-400); RED CELL DISTRIBUTION WIDTH SD 43.2 fL (36.4-46.3); WHITE BLOOD COUNT 8.86 K/uL (4.8-10.8)
[2017-07-29] MEDS: LEVOTHYROXINE 75 MCG TAB PO SCH (05:46)
[2017-07-29] MEDS: GABAPENTIN 600MG Q6H DOSE PO SCH ×2 (05:46→17:03)
[2017-07-29] MEDS: AMPICILLIN/SULBACTAM SOD INJ 3,000 MG in SODIUM CHLORIDE 0.9% 100ML 100 ML IV SCH ×4 (05:46→23:23)
[2017-07-29 05:51] LABS: INR 1.1 (0.9-1.1)
[2017-07-29] MEDS: INSULIN ASPART 100 UNITS/ML 3 ML PEN SC SCH ×4 (06:00→20:45)
[2017-07-29 06:14] LABS: ALBUMIN 2.4 gm/dl (3.4-5.0); CALCIUM 8.4 mg/dl (8.5-10.1); CREATININE 1.21 mg/dl (0.60-1.40); POTASSIUM 3.7 mmol/L (3.5-5.1)
[2017-07-29 06:17] LABS: TOTAL PROTEIN 7.3 gm/dl (6.4-8.2)
[2017-07-29] MEDS ORDERED: HEPARIN SOD 5000 UNIT/0.5 ML CARP SQ SCH (07:45)
[2017-07-29] MEDS ORDERED: AMPICILLIN/SULBACTAM CONSULT ACTIVE PRN (09:00)
[2017-07-29] MEDS: THIAMINE HCL 100 MG TAB PO SCH (10:02)
[2017-07-29] MEDS: ESCITALOPRAM OXALATE 20 MG TAB PO SCH (10:02)
[2017-07-29] MEDS: MULTIVITAMIN TAB PO SCH (10:05)
[2017-07-29] MEDS ORDERED: NURSING VERBAL MED ORDER ONE ×2 (10:30→17:15)
[2017-07-29] MEDS ORDERED: FENTANYL CITRATE INJ 50 MCG/1 ML 2 ML VIAL ONE ×3 (11:09→12:57)
[2017-07-29] MEDS ORDERED: MIDAZOLAM HCL 1 MG/ML 2ML VIAL ONE (11:10)
[2017-07-29] MEDS ORDERED: PROPOFOL IV EMULSION 10 MG/ML 20 ML VIAL IV ONE (11:11)
[2017-07-29] MEDS ORDERED: LIDOCAINE HCL 2% 2 ML VIAL (20MG/ML) ONE ×2 (11:11)
--- NOTE | 2017-07-29 11:35 | History & Physical Bridge Note ---
H&P Re-Evaluation Bridge Note: I have examined the patient, reviewed the History & Physical and in the interval since the performance of the History & Physical I have noted the following changes of clinical significance: No changes noted
[2017-07-29] MEDS ORDERED: LIDOCAINE HCL 1% 20 ML VIAL ONE (11:48)
[2017-07-29] MEDS ORDERED: BUPIVACAINE 0.5 % 5 MG/1 ML MPF 30ML VIAL ONE (11:48)
[2017-07-29] MEDS ORDERED: SUCCINYLCHOLINE 100MG/5ML SYR IV ONE (11:59)
[2017-07-29] MEDS ORDERED: ROCURONIUM BROMID 50MG/5ML SYR ONE (11:59)
[2017-07-29] MEDS ORDERED: PROMETHAZINE HCL INJ 12.5 MG in SODIUM CHLORIDE 0.9% 50ML 50 ML IV PRN (12:00)
[2017-07-29] MEDS ORDERED: HYDROmorphone INJ 1 MG/ML SYR IV PRN (12:00)
[2017-07-29] MEDS ORDERED: FENTANYL CITRATE INJ 50 MCG/1 ML 2 ML VIAL IV PRN (12:00)
[2017-07-29] MEDS ORDERED: PHENYLEPHRINE 100MCG/ML 5ML SYR IV PRN (12:00)
[2017-07-29] MEDS ORDERED: ATROPINE SULFATE 0.1 MG/ML 5ML SYR IV PRN (12:00)
[2017-07-29] MEDS ORDERED: ONDANSETRON INJ 2 MG/ML 2 ML VIAL IV PRN (12:00)
[2017-07-29] MEDS ORDERED: LABETALOL HCL IV 5 MG/ML 20ML IV PRN (12:00)
[2017-07-29] MEDS ORDERED: EpHEDrine SULFATE INJ 50 MG/ML AMP IV PRN (12:00)
[2017-07-29] MEDS ORDERED: GLYCOPYRROLATE INJ 0.2 MG/ML VIAL ONE (12:25)
[2017-07-29] MEDS ORDERED: DEXAMETHASONE SOD INJ 4 MG/ML VIAL ONE (12:25)
[2017-07-29] MEDS ORDERED: NEOSTIGMINE METHYLSULFATE 5 MG/5 ML SYR ONE (12:25)
[2017-07-29] MEDS ORDERED: EpHEDrine SULFATE 50MG/5ML SYR ONE (12:25)
[2017-07-29] MEDS ORDERED: ONDANSETRON INJ 2 MG/ML 2 ML VIAL ONE (12:25)
[2017-07-29] MEDS ORDERED: LARYING-O-JET KIT (LTA) ONE (12:27)
[2017-07-29] MEDS ORDERED: SURGICEL ABSORB HEMOSTAT 2IN X 14IN TOP ONE (13:38)
[2017-07-29] MEDS: BACITRACIN OINT 15 GM TUBE ONE ×2 (13:43→14:36)
--- NOTE | 2017-07-29 15:24 | [facility] Post Operative Brief Note ---
Immediate Operative Summary Operative Date Jul 29, 2017. Pre-Operative Diagnosis Acute Cholecystitis, cholelithiasis Post-Operative Diagnosis Same as preop Procedure(s) Performed Laparoscopic Cholecystectomy Surgeon Dr. Basurto Rn Emergency Room Surgeon(s) Emma Siddiqi PA-C Estimated Blood Loss 100 ML Findings Consistent with Post-Op Diagnosis severe acute cholecystitis, significant inflammation on gallbladder wall Fluids (cc crystalloids) 1200ml Specimens A. Gallbladder and Contents Drains NASIM X 1 Anesthesia Type General Complication(s) none Disposition Accompanied Pt To Recover: yes Disposition: Recovery Room / PACU
--- NOTE | 2017-07-29 15:25 | Anesthesiology Progress Note ---
Anesthesia Post Op Note Date & Time Jul 29, 2017 at 15:13 Vital Signs Pain Intensity: 0.0 Vital Signs Past 12 Hours Date Time Temp Pulse Resp B/P (MAP) Pulse Ox O2 Delivery O2 Flow Rate FiO2 07/29/17 08:07 Room Air 07/29/17 07:52 37.4 73 16 133/75 (94) 96 Room Air 07/29/17 03:30 37.5 73 18 116/73 (87) 94 Room Air Notes Mental Status: alert / awake / arousable, participated in evaluation Pt Amnestic to Procedure: Yes Nausea / Vomiting: adequately controlled Pain: adequately controlled Airway Patency, RR, SpO2: stable & adequate, see Notes BP & HR: stable & adequate Hydration State: stable & adequate Anesthetic Complications: no major complications apparent Weaning off of oxygen. Plan for ISB. Patient awake and conversant. Denies PONV and states she only has minimal pain.
[2017-07-29] MEDS: HYDROmorphone INJ 0.5 MG/0.5 ML SYR IV PRN ×2 (16:11→20:45)
--- NOTE | 2017-07-29 16:32 | Surgery Progress Note ---
Surgery Progress Note Date of Service Jul 29, 2017. Subjective F/U S/P laparoscopic cholecystectomy, NASIM x 1 pt said he is doing better, good control incisional pain, no nausea, no vomiting , NASIM minimal, I inform pt about OR finding and the procedure pt ad, pt understood, Objective Vital Signs: Date Time Temp Pulse Resp B/P (MAP) Pulse Ox O2 Delivery O2 Flow Rate FiO2 07/29/17 15:46 143/86 07/29/17 15:45 81 14 07/29/17 15:45 81 14 92 07/29/17 15:44 81 16 92 07/29/17 15:44 81 16 07/29/17 15:41 136/75 07/29/17 15:41 36.5 81 20 136/75 (80) 93 Nasal Cannula 10 07/29/17 15:39 17 07/29/17 15:39 81 17 07/29/17 15:38 80 14 07/29/17 15:38 80 14 92 07/29/17 15:36 143/80 07/29/17 15:34 140/79 07/29/17 15:30 147/84 07/29/17 15:29 141/81 07/29/17 15:29 36.2 87 18 152/99 93 Oxymask 10 07/29/17 15:28 81 25 07/29/17 15:28 81 25 92 07/29/17 15:26 145/94 07/29/17 15:25 80 23 145/94 (116) 91 Nasal Cannula 4 07/29/17 15:24 138/95 07/29/17 15:23 82 21 91 07/29/17 15:23 82 21 07/29/17 15:21 124/101 07/29/17 15:18 83 14 93 07/29/17 15:18 83 14 07/29/17 15:16 148/88 07/29/17 15:15 84 25 148/88 (116) 90 Oxymask 10 07/29/17 15:15 149/100 07/29/17 15:13 86 28 07/29/17 15:13 86 28 89 07/29/17 15:08 84 22 07/29/17 15:08 86 22 89 07/29/17 15:06 142/97 07/29/17 15:05 85 16 142/97 (101) 92 Oxymask 10 07/29/17 15:03 87 16 07/29/17 15:03 87 16 92 07/29/17 15:01 154/99 07/29/17 14:58 36.2 92 18 146/88 (108) 93 Oxymask 10 07/29/17 14:58 146/88 07/29/17 08:07 Room Air 07/29/17 07:52 37.4 73 16 133/75 (94) 96 Room Air 07/29/17 03:30 37.5 73 18 116/73 (87) 94 Room Air 07/29/17 00:05 37.9 78 18 114/73 (87) 94 Room Air 07/29/17 00:00 Room Air 07/28/17 22:51 36.4 60 18 07/28/17 22:38 37.7 84 16 131/75 Room Air 07/28/17 22:00 75 139/79 94 Room Air 07/28/17 21:00 86 138/85 96 Room Air 07/28/17 19:32 79 07/28/17 19:15 86 16 137/86 93 Room Air 07/28/17 17:22 37.0 98 20 119/68 93 Room Air General Appearance: WD/WN, no apparent distress Head: normocephalic Neck: supple, no JVD Respiratory/Chest: chest non-tender, lungs clear Cardiovascular: regular rate, rhythm, no edema, no gallop, no JVD Abdomen: normal bowel sounds, non distended (slightly tenderness at incision sites), soft Incision(s): clean, dry, intact Extremities: normal range of motion, non-tender, normal inspection Laboratory Results: Results Past 24 Hours Test 07/28/17 18:12 07/28/17 18:16 07/28/17 19:20 07/29/17 00:01 Range/Units Influenza Type A Antigen Neg for Influ A NEG Influenza Type B Antigen Neg for Influ B NEG White Blood Count 9.72 4.8-10.8 K/uL Red Blood Count 4.47 4.7-6.1 M/uL Hemoglobin 14.8 14.0-18.0 g/dL Hematocrit 40.3 42-52 % Mean Corpuscular Volume 90.2 80-100 fL Mean Corpuscular Hemoglobin 33.1 25-34 pg Mean Corpuscular Hemoglobin Concent 36.7 32-36 g/dl Platelet Count 145 130-400 K/uL Mean Platelet Volume 8.9 7.4-10.4 fL Neutrophils (%) (Auto) 85.8 % Lymphocytes (%) (Auto) 9.3 % Monocytes (%) (Auto) 4.7 % Eosinophils (%) (Auto) 0.0 % Basophils (%) (Auto) 0.0 % Neutrophils # (Auto) 8.34 1.4-6.5 K/uL Lymphocytes # (Auto) 0.90 1.2-3.4 K/uL Monocytes # (Auto) 0.46 0.11-0.59 K/uL Eosinophils # (Auto) 0.00 0-0.5 K/uL Basophils # (Auto) 0.00 0-0.2 K/uL RDW Standard Deviation 42.3 36.4-46.3 fL RDW Coefficient of Variation 12.9 11.5-14.5 % Immature Granulocyte % (Auto) 0.2 % Immature Granulocyte # (Auto) 0.02 0.00-0.02 K/uL Sodium Level 129 136-145 mmol/L Potassium Level 3.3 3.5-5.1 mmol/L Chloride Level 95 98-107 mmol/L Carbon Dioxide Level 25 21-32 mmol/L Anion Gap 9.0 3-11 mmol/L Blood Urea Nitrogen 26 7-18 mg/dl Creatinine 1.55 0.60-1.40 mg/dl Est Creatinine Clear Calc Drug Dose 44.7 ml/min Estimated GFR () 52.9 Estimated GFR (Non- 45.6 BUN/Creatinine Ratio 16.9 10-20 Random Glucose 139 70-99 mg/dl Calcium Level 8.8 8.5-10.1 mg/dl Magnesium Level 2.4 1.8-2.4 mg/dl Total Bilirubin 1.0 0.2-1 mg/dl Direct Bilirubin 0.4 0-0.2 mg/dl Aspartate Amino Transf (AST/SGOT) 32 15-37 U/L Alanine Aminotransferase (ALT/SGPT) 35 12-78 U/L Alkaline Phosphatase 109 45-117 U/L Total Protein 7.8 6.4-8.2 gm/dl Albumin 2.7 3.4-5.0 gm/dl Lipase 128 73-393 U/L Thyroid Stimulating Hormone (TSH) 4.210 0.300-4.500 uIu/ml Urine Color ORANGE Urine Appearance CLOUDY CLEAR Urine pH 5.0 4.5-7.5 Urine Specific Wilson 1.028 1.000-1.030 Urine Protein 3+ NEG Urine Glucose (UA) NEG NEG Urine Ketones 1+ NEG Urine Occult Blood NEG NEG Urine Nitrite POS NEG Urine Bilirubin NEG NEG Urine Urobilinogen POS NEG Urine Leukocyte Esterase TRACE NEG Urine WBC (Auto) 5-10 0-5 /hpf Urine RBC (Auto) 0-4 0-4 /hpf Urine Hyaline Casts (Auto) 10-30 0-5 /lpf Urine Epithelial Cells (Auto) >30 0-5 /lpf Urine Bacteria (Auto) NEG NEG Urine Renal Epithelial Cells 0-5 /lpf Urine Pathogenic Casts 1-5 GRANULAR CASTS 0 /lpf Urine Mucus PRESENT NONE PRSENT Urine Yeast (Auto) NONE PRSENT Bedside Glucose 143 70-99 mg/dl Test 07/29/17 05:24 07/29/17 05:55 07/29/17 15:05 Range/Units White Blood Count 8.86 4.8-10.8 K/uL Red Blood Count 4.15 4.7-6.1 M/uL Hemoglobin 13.5 14.0-18.0 g/dL Hematocrit 37.8 42-52 % Mean Corpuscular Volume 91.1 80-100 fL Mean Corpuscular Hemoglobin 32.5 25-34 pg Mean Corpuscular Hemoglobin Concent 35.7 32-36 g/dl Platelet Count 147 130-400 K/uL Mean Platelet Volume 8.7 7.4-10.4 fL Neutrophils (%) (Auto) 83.6 % Lymphocytes (%) (Auto) 9.8 % Monocytes (%) (Auto) 6.1 % Eosinophils (%) (Auto) 0.2 % Basophils (%) (Auto) 0.1 % Neutrophils # (Auto) 7.40 1.4-6.5 K/uL Lymphocytes # (Auto) 0.87 1.2-3.4 K/uL Monocytes # (Auto) 0.54 0.11-0.59 K/uL Eosinophils # (Auto) 0.02 0-0.5 K/uL Basophils # (Auto) 0.01 0-0.2 K/uL RDW Standard Deviation 43.2 36.4-46.3 fL RDW Coefficient of Variation 13.0 11.5-14.5 % Immature Granulocyte % (Auto) 0.2 % Immature Granulocyte # (Auto) 0.02 0.00-0.02 K/uL Prothrombin Time 11.3 9.0-12.0 SECONDS Prothromb Time International Ratio 1.1 0.9-1.1 Sodium Level 131 136-145 mmol/L Potassium Level 3.7 3.5-5.1 mmol/L Chloride Level 98 98-107 mmol/L Carbon Dioxide Level 25 21-32 mmol/L Anion Gap 8.0 3-11 mmol/L Blood Urea Nitrogen 22 7-18 mg/dl Creatinine 1.21 0.60-1.40 mg/dl Est Creatinine Clear Calc Drug Dose 57.3 ml/min Estimated GFR () 71.4 Estimated GFR (Non- 61.6 BUN/Creatinine Ratio 18.3 10-20 Random Glucose 110 70-99 mg/dl Calcium Level 8.4 8.5-10.1 mg/dl Total Bilirubin 1.0 0.2-1 mg/dl Aspartate Amino Transf (AST/SGOT) 36 15-37 U/L Alanine Aminotransferase (ALT/SGPT) 37 12-78 U/L Alkaline Phosphatase 108 45-117 U/L Total Protein 7.3 6.4-8.2 gm/dl Albumin 2.4 3.4-5.0 gm/dl Globulin 4.9 2.5-4.0 gm/dl Albumin/Globulin Ratio 0.5 0.9-2 Hepatitis C Antibody Screen NEG NEG Bedside Glucose 114 159 70-99 mg/dl Microbiology Results 07/28/17 Urine Culture - Preliminary, Resulted PIN-POINT GROWTH PRESENT, REINCUBATING. Assessment & Plan F/U S/P harinder sandhu JP X 1 pt is doing fine, I inform pt about OR finding and the procedure pt had, pt understood, I answered all questions, repeat labs in am, will F/U
[2017-07-29] MEDS: OXYCODONE/ACETAMINOPHEN 5-325 TAB PO PRN ×2 (17:10→23:22)
--- NOTE | 2017-07-29 18:18 | OPERATIVE REPORT ---
DATE OF OPERATION: 07/29/2017 PREOPERATIVE DIAGNOSIS: Acute cholecystitis, cholelithiasis. POSTOPERATIVE DIAGNOSIS: Same. PROCEDURE: Laparoscopic cholecystectomy. DRAINS: NASIM drainage x1. SURGEON: Mart Basurto MD. [employer] AND RECAUSTICIZING OPERATOR: Emma Siddiqi PA-C. ANESTHESIA: General. ESTIMATED BLOOD LOSS: About 100 mL. FINDINGS: Significant severe acute cholecystitis, significant inflammation on the gallbladder wall with cholelithiasis. COMPLICATIONS: None. INDICATIONS FOR THE PROCEDURE: This is a 66-year-old gentleman who presented to the ED with 5 days history of right upper quadrant pain. The patient had MRI and ultrasound showed acute cholecystitis with cholelithiasis and the patient was sent to the ER. We admitted the patient to hospital for acute cholecystitis and cholelithiasis and repeated the lab today this morning and shows normal total bilirubin so we decided to do laparoscopic cholecystectomy, possible open, possible cholangiogram. I did talk to the patient about the benefit and risk, alternate procedure. I indicated the risks may include but not limited such as bleeding, infection, bile leak, injury to common bile duct, injury to bowel, may need ERCP, myocardial infarction, DVT, stroke and even . The patient understands. He signed informed consent and he agreed to proceed with the procedure. I answered all questions. DETAILS OF PROCEDURE: We brought the patient to the OR, put the patient in the supine position. The patient received SCD on bilateral legs to prevent DVT. Also, the patient received prophylactic antibiotic, received 3000 mg IV for prophylactic antibiotic. The patient received general anesthesia without difficulty. The abdomen was prepped and draped in routine sterile fashion. After time out, I injected the local anesthesia by using 1% lidocaine mixed with 0.5% Marcaine just above umbilicus. I made a small incision just above umbilicus, opened fascia and opened peritoneum under direct vision. I put a Jesus trocar in, connected to CO2 to create pneumoperitoneum. Flow rate is 6 liters per minute, pressure, not more than 14 mmHg. Once we get a nice pneumoperitoneum, we inserted camera in looked around the abdomen and showed normal findings on the stomach, small bowel, large bowel. However, the gallbladder showed significant inflammation, edema, wall thickening and omentum significantly covers the gallbladder. Then, we put another three 5 mm trocar on the right upper quadrant. Once all trocars in, I put a grasper in to hold the base of the gallbladder and then we peeled down the omentum that covered the gallbladder. Based on the patient had significant inflammation of gallbladder, we used the larger needle to decompress the gallbladder first and then we were able to hold the gallbladder. Then, we put another grasper in to hold the pouch of the gallbladder, put latter to explore the triangle of Calot. The cystic duct was identified and mobilized. Then I put three 10 mm metal clips on the proximal cystic duct, one on the distal cystic duct. Then I used a scissor to transect the cystic duct. I used the 10 mm trocar having to change 1 in epigastric area, so 5 mm trocar through 10 mm trocar site. Then, the cystic artery was identified and mobilized. I put two 5 mm metal clips on the proximal cystic artery, 1 on the distal cystic artery and used scissor to transect the cystic artery. Rechecked, no active bleeding, no bile leak and then we used Bovie to take down the gallbladder. Because this gallbladder showed significant inflammation and edema, it was very difficult to take down and also we used top-down technique to take down gallbladder and eventually completely removed the gallbladder. We checked, no active bleeding, no bile leak on the liver bed and based on the significant inflammation on the gallbladder and the liver bed, we decided to put a 10 mm NASIM drainage in and this moment, we removed the gallbladder through the catcher bag because the patient had significant large gallstone and the gallstone size were about 3 x 3 cm and with multiple small stones we had to enlarge the umbilical incision to 3 cm. Once we removed the gallbladder, we reinserted Jesus trocar in, connected to CO2 to create pneumoperitoneum again and this moment, we checked the liver bed. No active bleeding, no bile leak. We decided to put a 10 mm NASIM drainage in and rechecked and no injury to bowel. Then we removed all trocar under direct vision. No active bleeding from trocar sites. The pneumoperitoneum was reduced. Then I used #1 Vicryl to close the umbilical incision, fascial layer [id number] x3 and then closed subcutaneous layer by using 2-0 Vicryl, closed skin by using 4-0 Vicryl, epigastric 10 mm trocar site closed the fascial layer by using #1 Vicryl [id number] x2, closed subcutaneous layer by using 2-0 Vicryl, closed skin by using 4-0 Vicryl continuous running. Another two 5 mm trocar site closed skin only by using 4-0 Vicryl. Then we put the dressing on. The patient tolerated the procedure well. All the instrument, needle and sponge count correct x2 at the end of the case. The specimen was sent to pathology. The patient transferred to recovery room in stable condition. I attest to the content of the Intraoperative Record and any orders documented therein. Any exception s are noted below.
--- NOTE | 2017-07-29 20:17 | Progress Note ---
Medicine Progress Note Date & Time of Visit: Jul 29, 2017 at 16:30 . Subjective CC: Follow-up visit for cholecystitis. HPI: Laparoscopic cholecystectomy performed this afternoon by Dr. Basurto. Doing well postoperatively. No chest pain. No cough or dyspnea. No nausea or vomiting. Postop pain well-controlled. ROS: as noted above in HPI . Objective Last 8 Hrs Date Time Temp Pulse Resp B/P (MAP) Pulse Ox O2 Delivery O2 Flow Rate FiO2 07/29/17 19:47 36.6 79 18 110/67 (81) 94 Nasal Cannula 3.0 07/29/17 17:00 36.7 78 18 121/80 (94) 94 Nasal Cannula 3.0 07/29/17 16:00 36.9 80 16 142/87 (105) 93 Nasal Cannula 3.0 07/29/17 16:00 93 Nasal Cannula 3.0 07/29/17 16:00 93 Nasal Cannula 3.0 07/29/17 15:46 143/86 07/29/17 15:45 81 14 07/29/17 15:45 81 14 92 07/29/17 15:44 81 16 92 07/29/17 15:44 81 16 07/29/17 15:41 136/75 07/29/17 15:41 36.5 81 20 136/75 (80) 93 Nasal Cannula 10 07/29/17 15:39 17 07/29/17 15:39 81 17 07/29/17 15:38 80 14 07/29/17 15:38 80 14 92 07/29/17 15:36 143/80 07/29/17 15:34 140/79 07/29/17 15:30 147/84 07/29/17 15:29 141/81 07/29/17 15:29 36.2 87 18 152/99 93 Oxymask 10 07/29/17 15:28 81 25 07/29/17 15:28 81 25 92 07/29/17 15:26 145/94 07/29/17 15:25 80 23 145/94 (116) 91 Nasal Cannula 4 07/29/17 15:24 138/95 07/29/17 15:23 82 21 91 07/29/17 15:23 82 21 07/29/17 15:21 124/101 07/29/17 15:18 83 14 93 07/29/17 15:18 83 14 1/31/18 15:16 148/88 07/29/17 15:15 84 25 148/88 (116) 90 Oxymask 10 07/29/17 15:15 149/100 07/29/17 15:13 86 28 07/29/17 15:13 86 28 89 07/29/17 15:08 84 22 07/29/17 15:08 86 22 89 07/29/17 15:06 142/97 07/29/17 15:05 85 16 142/97 (101) 92 Oxymask 10 07/29/17 15:03 87 16 07/29/17 15:03 87 16 92 07/29/17 15:01 154/99 07/29/17 14:58 36.2 92 18 146/88 (108) 93 Oxymask 10 07/29/17 14:58 146/88 Physical Exam: General- lying in bed; no distress Lungs- clear to auscultation; no respiratory distress Cardiovascular- RRR; no gallop; no JVD; no pretibial edema Abdomen- + bowel sounds, soft, nontender Extremities- no cyanosis; no calf tenderness Neuro- alert, oriented Skin- warm & dry . Laboratory Results: Last 24 Hours Test 07/29/17 00:01 07/29/17 05:24 07/29/17 05:55 07/29/17 15:05 Bedside Glucose 143 mg/dl 114 mg/dl 159 mg/dl White Blood Count 8.86 K/uL Red Blood Count 4.15 M/uL Hemoglobin 13.5 g/dL Hematocrit 37.8 % Mean Corpuscular Volume 91.1 fL Mean Corpuscular Hemoglobin 32.5 pg Mean Corpuscular Hemoglobin Concent 35.7 g/dl Platelet Count 147 K/uL Mean Platelet Volume 8.7 fL Neutrophils (%) (Auto) 83.6 % Lymphocytes (%) (Auto) 9.8 % Monocytes (%) (Auto) 6.1 % Eosinophils (%) (Auto) 0.2 % Basophils (%) (Auto) 0.1 % Neutrophils # (Auto) 7.40 K/uL Lymphocytes # (Auto) 0.87 K/uL Monocytes # (Auto) 0.54 K/uL Eosinophils # (Auto) 0.02 K/uL Basophils # (Auto) 0.01 K/uL RDW Standard Deviation 43.2 fL RDW Coefficient of Variation 13.0 % Immature Granulocyte % (Auto) 0.2 % Immature Granulocyte # (Auto) 0.02 K/uL Prothrombin Time 11.3 SECONDS Prothromb Time International Ratio 1.1 Sodium Level 131 mmol/L Potassium Level 3.7 mmol/L Chloride Level 98 mmol/L Carbon Dioxide Level 25 mmol/L Anion Gap 8.0 mmol/L Blood Urea Nitrogen 22 mg/dl Creatinine 1.21 mg/dl Est Creatinine Clear Calc Drug Dose 57.3 ml/min Estimated GFR () 71.4 Estimated GFR (Non- 61.6 BUN/Creatinine Ratio 18.3 Random Glucose 110 mg/dl Calcium Level 8.4 mg/dl Total Bilirubin 1.0 mg/dl Aspartate Amino Transf (AST/SGOT) 36 U/L Alanine Aminotransferase (ALT/SGPT) 37 U/L Alkaline Phosphatase 108 U/L Total Protein 7.3 gm/dl Albumin 2.4 gm/dl Globulin 4.9 gm/dl Albumin/Globulin Ratio 0.5 Hepatitis C Antibody Screen NEG Test 07/29/17 17:02 Bedside Glucose 175 mg/dl Assessment & Plan CHOLECYSTITIS WITH CHOLELITHIASIS Laparoscopic cholecystectomy performed today by Dr. Basurto. Receiving IV ampicillin / sulbactam. DM TYPE 2 Well-controlled. Check Hgb A1C. FBS this morning = 114. Hold metformin during hospital stay. Insulin coverage as needed. HYPOTHYROIDISM Continue levothyroxine. VTE PROPHYLAXIS No anticoagulants today because of surgery. SCD's. Ambulate. DISPOSITION Expected discharge to home. Internal Medicine follow-up with Dr. Brown. . Current Inpatient Medications: Current Inpatient Medications Medications (Trade) Dose Ordered Sig/Evens Route Start Time Stop Time Status Last Admin Dose Admin Potassium Chloride/Sodium Chloride 1,000 ml @ 100 mls/hr Q10H IV 07/28/17 23:00 08/27/17 22:59 07/29/17 00:27 75 MLS/HR Acetaminophen (Tylenol Tab) 650 mg Q4H PRN PO 07/28/17 21:15 08/27/17 21:14 Glucose (Glucose 40% Gel) 15-30 GRAMS 15 GRAMS... UD PRN PO 07/28/17 21:15 08/27/17 21:14 Glucose (Glucose Chew Tab) 4-8 Tablets 4 Tabl... UD PRN PO 07/28/17 21:15 08/27/17 21:14 Dextrose (Dextrose 50% 50ML Syringe) 25-50ML OF 50% DW IV FOR... UD PRN IV 07/28/17 21:15 08/27/17 21:14 Glucagon (Glucagon Inj) 1 mg UD PRN SQ 07/28/17 21:15 08/27/17 21:14 Hydromorphone HCl (Dilaudid Inj) 0.5 mg Q3H PRN IV 07/28/17 21:15 08/11/17 21:14 07/29/17 16:11 0.5 MG Oxycodone/ Acetaminophen (Percocet 5-325mg Tab) 1 tab Q6H PRN PO 07/28/17 21:15 08/11/17 21:14 07/29/17 17:10 1 TAB Prochlorperazine Edisylate 5 mg/ Syringe 5 ml @ 5 mls/min Q6H PRN IV 07/28/17 21:15 08/27/17 21:14 Thiamine HCl (Vitamin B-1 Tab) 100 mg QAM PO 07/29/17 09:00 08/28/17 08:59 07/29/17 10:02 100 MG Multivitamins (Multivitamin Tab) 1 tab QAM PO 07/29/17 09:00 08/28/17 08:59 07/29/17 10:05 1 TAB Folic Acid (Folvite Tab) 1 mg QAM PO 07/29/17 09:00 08/28/17 08:59 Ampicillin Sodium/ Sulbactam Sodium (Consult) 1 ea UD PRN N/A 07/29/17 09:00 08/28/17 08:59 Escitalopram Oxalate (Lexapro Tab) 20 mg QAM PO 07/29/17 09:00 08/28/17 08:59 07/29/17 10:02 20 MG Levothyroxine Sodium (Synthroid Tab) 75 mcg DAILYBB PO 07/29/17 06:00 08/28/17 05:59 07/29/17 05:46 75 MCG Pravastatin Sodium (Pravachol Tab) 10 mg HS PO 07/29/17 21:00 08/28/17 20:59 Lorazepam (Ativan Inj) PRN Dosing -Active Protocol Q1H PRN IV 07/28/17 21:15 08/27/17 21:14 Gabapentin (Neurontin Tab) 600 mg Q8H PO 07/29/17 22:00 07/30/17 14:01 Gabapentin (Neurontin Tab) 600 mg Q12H PO 07/31/17 00:00 07/31/17 12:01 Gabapentin (Neurontin Tab) 600 mg Q24H PO 08/01/17 12:00 08/01/17 12:01 Ampicillin Sodium/ Sulbactam Sodium 3000 mg/Sodium Chloride 108 ml @ 216 mls/hr Q6H IV 07/29/17 06:00 08/08/17 05:59 07/29/17 18:26 216 MLS/HR Insulin Aspart (novoLOG ASPART) SLIDING SCALE If C... ACHS SC 07/29/17 17:15 08/28/17 17:14
[2017-07-29] MEDS: PRAVASTATIN SOD 10 MG TAB PO SCH (20:46)
[2017-07-29] MEDS: GABAPENTIN 600MG Q8H DOSE PO SCH (22:00)
[2017-07-30] VITALS (9 sets, daily range): BP systolic 94–110; BP diastolic 50–69; PULSE 66–78; TEMP 36.5–37.1; O2SAT 82–92
[2017-07-30] MEDS: LEVOTHYROXINE 75 MCG TAB PO SCH (05:41)
[2017-07-30] MEDS: GABAPENTIN 600MG Q8H DOSE PO SCH ×2 (05:41→14:00)
[2017-07-30] MEDS: AMPICILLIN/SULBACTAM SOD INJ 3,000 MG in SODIUM CHLORIDE 0.9% 100ML 100 ML IV SCH ×4 (05:41→23:15)
[2017-07-30 06:11] LABS: BASO % 0.2 %; BASO ABS # 0.01 K/uL (0-0.2); HEMATOCRIT 34.3 % (42-52); HEMOGLOBIN 11.7 g/dL (14.0-18.0); IG# 0.01 K/uL (0.00-0.02); LYMPH ABS # 0.65 K/uL (1.2-3.4); MEAN CELL VOLUME 93.5 fL (80-100); MEAN CORPUSCULAR HEMOGLOBIN 31.9 pg (25-34); MEAN CORPUSCULAR HGB CONC 34.1 g/dl (32-36); MONO % 8.1 %; MONO ABS # 0.53 K/uL (0.11-0.59); NEUT % 81.5 %; NEUT ABS # 5.33 K/uL (1.4-6.5); PLATELET COUNT 180 K/uL (130-400); RED CELL DISTRIBUTION WIDTH CV 13.4 % (11.5-14.5); WHITE BLOOD COUNT 6.53 K/uL (4.8-10.8)
[2017-07-30 06:45] LABS: ALBUMIN 2.1 gm/dl (3.4-5.0); CREATININE 1.32 mg/dl (0.60-1.40)
[2017-07-30 06:48] LABS: TOTAL PROTEIN 6.5 gm/dl (6.4-8.2)
[2017-07-30 07:29] LABS: HEMOGLOBIN A1C 6.8 % (4.5-5.6)
[2017-07-30] MEDS: INSULIN ASPART 100 UNITS/ML 3 ML PEN SC SCH ×4 (08:00→20:21)
--- NOTE | 2017-07-30 09:51 | Anesthesiology Progress Note ---
Anesthesia Post Op Note Date & Time Jul 30, 2017 at 09:49 Vital Signs Vital Signs Past 12 Hours Date Time Temp Pulse Resp B/P (MAP) Pulse Ox O2 Delivery O2 Flow Rate FiO2 07/30/17 07:59 Room Air 07/30/17 07:57 36.8 66 19 110/65 (80) 91 Nasal Cannula 2.0 07/30/17 03:56 92 Nasal Cannula 3.0 07/30/17 03:55 36.5 66 18 104/66 (79) 83 Room Air 07/29/17 23:30 Room Air 07/29/17 23:02 36.7 72 18 112/73 (86) 84 Room Air 07/29/17 23:02 91 Nasal Cannula 2.0 Notes Mental Status: alert / awake / arousable, participated in evaluation Pt Amnestic to Procedure: Yes Nausea / Vomiting: adequately controlled Pain: adequately controlled Airway Patency, RR, SpO2: stable & adequate BP & HR: stable & adequate Hydration State: stable & adequate Anesthetic Complications: no major complications apparent
--- NOTE | 2017-07-30 09:55 | Surgery Progress Note ---
Surgery Progress Note Date of Service Jul 30, 2017. Subjective Post OP Day: 1 (s/p laparoscopic cholecystectomy) + feeling well, + complaints ("unable to urinate on my own", straight cathed last night around 1230. ), + pain controlled (minimal pain, rated 2/10 currently ), + diet (clear liquids), No chest pain, No ambulating, No SOB, No bowel movement, No flatus, No nausea, No vomiting Objective Vital Signs: Date Time Temp Pulse Resp B/P (MAP) Pulse Ox O2 Delivery O2 Flow Rate FiO2 07/30/17 07:59 Room Air 07/30/17 07:57 36.8 66 19 110/65 (80) 91 Nasal Cannula 2.0 07/30/17 03:56 92 Nasal Cannula 3.0 07/30/17 03:55 36.5 66 18 104/66 (79) 83 Room Air 07/29/17 23:30 Room Air 07/29/17 23:02 36.7 72 18 112/73 (86) 84 Room Air 07/29/17 23:02 91 Nasal Cannula 2.0 07/29/17 19:47 36.6 79 18 110/67 (81) 94 Nasal Cannula 3.0 07/29/17 17:00 36.7 78 18 121/80 (94) 94 Nasal Cannula 3.0 07/29/17 16:00 36.9 80 16 142/87 (105) 93 Nasal Cannula 3.0 07/29/17 16:00 93 Nasal Cannula 3.0 07/29/17 16:00 93 Nasal Cannula 3.0 07/29/17 15:46 143/86 07/29/17 15:45 81 14 07/29/17 15:45 81 14 92 07/29/17 15:44 81 16 92 07/29/17 15:44 81 16 07/29/17 15:41 136/75 07/29/17 15:41 36.5 81 20 136/75 (80) 93 Nasal Cannula 10 07/29/17 15:39 17 07/29/17 15:39 81 17 07/29/17 15:38 80 14 07/29/17 15:38 80 14 92 07/29/17 15:36 143/80 07/29/17 15:34 140/79 07/29/17 15:30 147/84 07/29/17 15:29 141/81 07/29/17 15:29 36.2 87 18 152/99 93 Oxymask 10 07/29/17 15:28 81 25 07/29/17 15:28 81 25 92 07/29/17 15:26 145/94 07/29/17 15:25 80 23 145/94 (116) 91 Nasal Cannula 4 07/29/17 15:24 138/95 07/29/17 15:23 82 21 91 07/29/17 15:23 82 21 07/29/17 15:21 124/101 07/29/17 15:18 83 14 93 07/29/17 15:18 83 14 07/29/17 15:16 148/88 07/29/17 15:15 84 25 148/88 (116) 90 Oxymask 10 07/29/17 15:15 149/100 07/29/17 15:13 86 28 07/29/17 15:13 86 28 89 07/29/17 15:08 84 22 07/29/17 15:08 86 22 89 07/29/17 15:06 142/97 07/29/17 15:05 85 16 142/97 (101) 92 Oxymask 10 07/29/17 15:03 87 16 07/29/17 15:03 87 16 92 07/29/17 15:01 154/99 07/29/17 14:58 36.2 92 18 146/88 (108) 93 Oxymask 10 07/29/17 14:58 146/88 Physical Exam: NASIM drainage (serosanguienous) General Appearance: WD/WN, no apparent distress Head: normocephalic, atraumatic Neck: trachea midline Respiratory/Chest: no respiratory distress, no accessory muscle use Cardiovascular: regular rate, rhythm, no murmur Abdomen: soft, + abnormal bowel sounds, + distended (mild), + tenderness ( appropriate post op at incision sites, mostly RUQ) Incision(s): clean, dry (dressings clean and dry, incisions not inspected) Laboratory Results: Results Past 24 Hours Test 07/29/17 15:05 07/29/17 17:02 07/29/17 20:35 07/30/17 05:55 Range/Units Bedside Glucose 159 175 267 70-99 mg/dl White Blood Count 6.53 4.8-10.8 K/uL Red Blood Count 3.67 4.7-6.1 M/uL Hemoglobin 11.7 14.0-18.0 g/dL Hematocrit 34.3 42-52 % Mean Corpuscular Volume 93.5 80-100 fL Mean Corpuscular Hemoglobin 31.9 25-34 pg Mean Corpuscular Hemoglobin Concent 34.1 32-36 g/dl Platelet Count 180 130-400 K/uL Mean Platelet Volume 9.0 7.4-10.4 fL Neutrophils (%) (Auto) 81.5 % Lymphocytes (%) (Auto) 10.0 % Monocytes (%) (Auto) 8.1 % Eosinophils (%) (Auto) 0.0 % Basophils (%) (Auto) 0.2 % Neutrophils # (Auto) 5.33 1.4-6.5 K/uL Lymphocytes # (Auto) 0.65 1.2-3.4 K/uL Monocytes # (Auto) 0.53 0.11-0.59 K/uL Eosinophils # (Auto) 0.00 0-0.5 K/uL Basophils # (Auto) 0.01 0-0.2 K/uL RDW Standard Deviation 46.0 36.4-46.3 fL RDW Coefficient of Variation 13.4 11.5-14.5 % Immature Granulocyte % (Auto) 0.2 % Immature Granulocyte # (Auto) 0.01 0.00-0.02 K/uL Sodium Level 130 136-145 mmol/L Potassium Level 4.0 3.5-5.1 mmol/L Chloride Level 98 98-107 mmol/L Carbon Dioxide Level 27 21-32 mmol/L Anion Gap 5.0 3-11 mmol/L Blood Urea Nitrogen 20 7-18 mg/dl Creatinine 1.32 0.60-1.40 mg/dl Est Creatinine Clear Calc Drug Dose 52.5 ml/min Estimated GFR () 64.2 Estimated GFR (Non- 55.4 BUN/Creatinine Ratio 15.3 10-20 Random Glucose 230 70-99 mg/dl Estimated Average Glucose 148 mg/dl Hemoglobin A1c 6.8 4.5-5.6 % Calcium Level 8.0 8.5-10.1 mg/dl Total Bilirubin 0.6 0.2-1 mg/dl Aspartate Amino Transf (AST/SGOT) 40 15-37 U/L Alanine Aminotransferase (ALT/SGPT) 48 12-78 U/L Alkaline Phosphatase 102 45-117 U/L Total Protein 6.5 6.4-8.2 gm/dl Albumin 2.1 3.4-5.0 gm/dl Globulin 4.4 2.5-4.0 gm/dl Albumin/Globulin Ratio 0.5 0.9-2 Test 07/30/17 07:59 Range/Units Bedside Glucose 192 70-99 mg/dl Assessment & Plan POD # 1 s/p laparoscopic cholecystectomy - vitals stable, requiring oxygen via nasal cannula but weaning off - pain minimal, controlled - +urinary retention, required straight cath last night, has not urinated this am - tolerated clear liquids Plan: Bladder scan and straight cath prn as ordered Encourage ambulation and incentive spirometry Advance diet as tolerated Continue current pain management Keep O2 sats >92%, wean O2 as tolerated continue NASIM drain to bulb suction Saw patient with Dr. Basurto at 11:00 am Per patient he voided on his own, did not record how much pain controlled tolerated clears, wants more See above orders Most likely will stay tonight given urinary retention and weaning O2 Hopeful discharge tomorrow Dr. Basurto has seen and examined patient, agrees with above
[2017-07-30] MEDS: THIAMINE HCL 100 MG TAB PO SCH (10:06)
[2017-07-30] MEDS: OXYCODONE/ACETAMINOPHEN 5-325 TAB PO PRN (10:06)
[2017-07-30] MEDS: MULTIVITAMIN TAB PO SCH (10:07)
[2017-07-30] MEDS: ESCITALOPRAM OXALATE 20 MG TAB PO SCH (10:07)
[2017-07-30] MEDS ORDERED: OXYCODONE/ACETAMINOPHEN 5-325 TAB PO PRN (16:00)
[2017-07-30] MEDS: HYDROmorphone INJ 0.5 MG/0.5 ML SYR IV PRN (16:32)
--- NOTE | 2017-07-30 17:31 | DIAGNOSTIC IMAGING REPORT ---
CHEST 2 VIEWS ROUTINE HISTORY: hypoxia COMPARISON: Chest 07/28/2017. FINDINGS: Low lung volumes with bibasilar linear densities and mild elevation the right hemidiaphragm, unchanged. As also linear density within the left suprahilar region. No pneumothorax. No pleural effusions. Surgical drain within the right upper quadrant suggesting recent cholecystectomy. The heart is borderline enlarged. There is no evidence for pulmonary edema. IMPRESSION: 1. No change in the low lung volumes, elevation of the right hemidiaphragm, and bibasilar linear densities suggesting subsegmental atelectasis. 2. There is a new linear density within the left suprahilar location which may also be due to atelectasis. Electronically signed by: John Ojeda M.D. 07/30/2017 5:29 PM Dictated Date/Time: 07/30/2017 5:27 PM
[2017-07-30] MEDS: ENOXAPARIN 40 MG/0.4 ML SYR SQ SCH (19:08)
[2017-07-30] MEDS: PRAVASTATIN SOD 10 MG TAB PO SCH (20:22)
--- NOTE | 2017-07-30 20:44 | Progress Note ---
Medicine Progress Note Date & Time of Visit: Jul 30, 2017 at 10:15 . Subjective CC: Follow-up visit for cholecystitis and other problems.. HPI: Doing fairly well postoperatively. No chest pain. No cough or dyspnea. No nausea or vomiting. Passing flatus, no stool. Urinary retention last night, required straight cath. Voided this morning. Having some postop pain. Blood sugars high - declined insulin coverage. ROS: as noted above in HPI . Objective Last 8 Hrs Date Time Temp Pulse Resp B/P (MAP) Pulse Ox O2 Delivery O2 Flow Rate FiO2 07/30/17 15:38 92 Nasal Cannula 4.0 07/30/17 15:30 92 Nasal Cannula 4.0 07/30/17 15:20 37.0 78 24 94/54 (67) 82 Room Air Physical Exam: General- lying in bed; no distress Lungs- clear to auscultation; no respiratory distress Cardiovascular- RRR; no gallop; no JVD; no pretibial edema Abdomen- + bowel sounds, soft, nontender Extremities- no cyanosis; no calf tenderness Neuro- alert, oriented Skin- warm & dry . Laboratory Results: Last 24 Hours Test 07/30/17 05:55 07/30/17 07:59 07/30/17 17:02 07/30/17 20:20 White Blood Count 6.53 K/uL Red Blood Count 3.67 M/uL Hemoglobin 11.7 g/dL Hematocrit 34.3 % Mean Corpuscular Volume 93.5 fL Mean Corpuscular Hemoglobin 31.9 pg Mean Corpuscular Hemoglobin Concent 34.1 g/dl Platelet Count 180 K/uL Mean Platelet Volume 9.0 fL Neutrophils (%) (Auto) 81.5 % Lymphocytes (%) (Auto) 10.0 % Monocytes (%) (Auto) 8.1 % Eosinophils (%) (Auto) 0.0 % Basophils (%) (Auto) 0.2 % Neutrophils # (Auto) 5.33 K/uL Lymphocytes # (Auto) 0.65 K/uL Monocytes # (Auto) 0.53 K/uL Eosinophils # (Auto) 0.00 K/uL Basophils # (Auto) 0.01 K/uL RDW Standard Deviation 46.0 fL RDW Coefficient of Variation 13.4 % Immature Granulocyte % (Auto) 0.2 % Immature Granulocyte # (Auto) 0.01 K/uL Sodium Level 130 mmol/L Potassium Level 4.0 mmol/L Chloride Level 98 mmol/L Carbon Dioxide Level 27 mmol/L Anion Gap 5.0 mmol/L Blood Urea Nitrogen 20 mg/dl Creatinine 1.32 mg/dl Est Creatinine Clear Calc Drug Dose 52.5 ml/min Estimated GFR () 64.2 Estimated GFR (Non- 55.4 BUN/Creatinine Ratio 15.3 Random Glucose 230 mg/dl Estimated Average Glucose 148 mg/dl Hemoglobin A1c 6.8 % Calcium Level 8.0 mg/dl Total Bilirubin 0.6 mg/dl Aspartate Amino Transf (AST/SGOT) 40 U/L Alanine Aminotransferase (ALT/SGPT) 48 U/L Alkaline Phosphatase 102 U/L Total Protein 6.5 gm/dl Albumin 2.1 gm/dl Globulin 4.4 gm/dl Albumin/Globulin Ratio 0.5 Bedside Glucose 192 mg/dl 152 mg/dl 167 mg/dl Assessment & Plan CHOLECYSTITIS WITH CHOLELITHIASIS Laparoscopic cholecystectomy performed 07/[address] Basurto. POD # 1 Receiving IV ampicillin / sulbactam. Incentive spirometry. DM TYPE 2 Well-controlled. Hgb A1C = 6.8. FBS this morning = 192. Hold metformin during hospital stay. Patient declined insulin coverage- rationale explained he he now agrees. HYPOTHYROIDISM Continue levothyroxine. BPH Resume alfuzosin. VTE PROPHYLAXIS No anticoagulants today because of surgery. SCD's. Ambulate. DISPOSITION Expected discharge to home. Internal Medicine follow-up with Dr. Brown. . Current Inpatient Medications: Current Inpatient Medications Medications (Trade) Dose Ordered Sig/Evens Route Start Time Stop Time Status Last Admin Dose Admin Acetaminophen (Tylenol Tab) 650 mg Q4H PRN PO 07/28/17 21:15 08/27/17 21:14 Glucose (Glucose 40% Gel) 15-30 GRAMS 15 GRAMS... UD PRN PO 07/28/17 21:15 08/27/17 21:14 Glucose (Glucose Chew Tab) 4-8 Tablets 4 Tabl... UD PRN PO 07/28/17 21:15 08/27/17 21:14 Dextrose (Dextrose 50% 50ML Syringe) 25-50ML OF 50% DW IV FOR... UD PRN IV 07/28/17 21:15 08/27/17 21:14 Glucagon (Glucagon Inj) 1 mg UD PRN SQ 07/28/17 21:15 08/27/17 21:14 Hydromorphone HCl (Dilaudid Inj) 0.5 mg Q3H PRN IV 07/28/17 21:15 08/11/17 21:14 07/30/17 16:32 0.5 MG Oxycodone/ Acetaminophen (Percocet 5-325mg Tab) 1 tab Q6H PRN PO 07/28/17 21:15 08/11/17 21:14 07/30/17 10:06 1 TAB Prochlorperazine Edisylate 5 mg/ Syringe 5 ml @ 5 mls/min Q6H PRN IV 07/28/17 21:15 08/27/17 21:14 Thiamine HCl (Vitamin B-1 Tab) 100 mg QAM PO 07/29/17 09:00 08/28/17 08:59 07/30/17 10:06 100 MG Multivitamins (Multivitamin Tab) 1 tab QAM PO 07/29/17 09:00 08/28/17 08:59 07/30/17 10:07 1 TAB Folic Acid (Folvite Tab) 1 mg QAM PO 07/29/17 09:00 08/28/17 08:59 07/30/17 10:06 1 MG Ampicillin Sodium/ Sulbactam Sodium (Consult) 1 ea UD PRN N/A 07/29/17 09:00 08/28/17 08:59 Escitalopram Oxalate (Lexapro Tab) 20 mg QAM PO 07/29/17 09:00 08/28/17 08:59 07/30/17 10:07 20 MG Levothyroxine Sodium (Synthroid Tab) 75 mcg DAILYBB PO 07/29/17 06:00 08/28/17 05:59 07/30/17 05:41 75 MCG Pravastatin Sodium (Pravachol Tab) 10 mg HS PO 07/29/17 21:00 08/28/17 20:59 07/30/17 20:22 10 MG Lorazepam (Ativan Inj) PRN Dosing -Active Protocol Q1H PRN IV 07/28/17 21:15 08/27/17 21:14 Ampicillin Sodium/ Sulbactam Sodium 3000 mg/Sodium Chloride 108 ml @ 216 mls/hr Q6H IV 07/29/17 06:00 2/10/18 05:59 07/30/17 18:34 216 MLS/HR Insulin Aspart (novoLOG ASPART) SLIDING SCALE If C... ACHS SC 07/29/17 17:15 08/28/17 17:14 Alfuzosin HCl (Uroxatral Tab) 10 mg HS PO 07/30/17 21:00 08/29/17 20:59 07/30/17 20:22 10 MG Oxycodone/ Acetaminophen (Percocet 5-325mg Tab) 2 tab Q6H PRN PO 07/30/17 16:00 08/13/17 15:59 07/30/17 19:08 2 TAB Enoxaparin Sodium (Lovenox Inj) 40 mg DAILY SQ 07/30/17 17:00 08/29/17 16:59 07/30/17 19:08 40 MG
[2017-07-30] MEDS ORDERED: ALFUZosin TAB 10 MG TAB PO SCH (21:00)
[2017-07-31] MEDS ORDERED: GABAPENTIN 600MG Q12H DOSE PO SCH
[2017-07-31] MEDS: AMPICILLIN/SULBACTAM SOD INJ 3,000 MG in SODIUM CHLORIDE 0.9% 100ML 100 ML IV SCH (05:47)
[2017-07-31] MEDS: LEVOTHYROXINE 75 MCG TAB PO SCH (05:48)
[2017-07-31 07:34] VITALS: BP 143/79; PULSE 84; TEMP 37; O2SAT 85
[2017-07-31 08:03] VITALS: O2SAT 92
[2017-07-31 08:28] LABS: CALCIUM 8.4 mg/dl (8.5-10.1); CREATININE 1.09 mg/dl (0.60-1.40); POTASSIUM 3.6 mmol/L (3.5-5.1)
[2017-07-31] MEDS: MULTIVITAMIN TAB PO SCH (08:54)
[2017-07-31] MEDS: THIAMINE HCL 100 MG TAB PO SCH (08:54)
[2017-07-31] MEDS: ESCITALOPRAM OXALATE 20 MG TAB PO SCH (08:54)
[2017-07-31] MEDS: ENOXAPARIN 40 MG/0.4 ML SYR SQ SCH (08:55)
[2017-07-31] MEDS: INSULIN ASPART 100 UNITS/ML 3 ML PEN SC SCH (08:56)
[2017-07-31 09:24] VITALS: O2SAT 91
--- NOTE | 2017-07-31 11:01 | Discharge Instructions ---
Discharge Instructions Date of Service Jul 31, 2017. Admission Reason for Admission: gall stones and cholecystitis (inflammation of gallbladder) . Discharge Discharge Diagnosis / Problem: gall stones and cholecystitis (inflammation of gallbladder). Discharge Goals Goal(s): Decrease discomfort, Improve disease control Activity Recommendations Activity Limitations: as noted below Lifting Limitations: gradually increase as tolerated . Instructions / Follow-Up Instructions / Follow-Up APPOINTMENTS: GENERAL SURGERY INTERNAL MEDICINE 08/17/2017 2:20 PM Brown Brown, DO OTHER INSTRUCTIONS: Seek medical attention if you have: * temperature above 101 * chest pain or trouble breathing * abdominal pain, nausea, vomiting * diarrhea, dark stools or bloody stools * any unanswered questions or concerns Call 911 if symptoms are severe. Call if you have any questions or problems. My cell # is [phone]. You can also reach a [facility] hospitalist on duty at [facility] 24 hours a day by calling [phone]. Please take good care of yourself. Rui Goddard . Current Hospital Diet Patient's current hospital diet: Diabetes Type 2 Diet Discharge Diet Recommended Diet: AHA Diet (Heart Healthy), Diabetes Type 2 Diet, Low Fat Diet Procedures Procedures Performed: Laparoscopic Cholecystectomy Pending Studies Studies pending at discharge: yes List of pending studies: GALLBLADDER PATHOLOGY Laboratory Results Hemoglobin A1c Test 07/30/17 05:55 Range/Units Estimated Average Glucose 148 mg/dl Hemoglobin A1c 6.8 H 4.5-5.6 % Medical Emergencies . Who to Call and When: Medical Emergencies: If at any time you feel your situation is an emergency, please call 911 immediately. . Non-Emergent Contact Non-Emergency issues call your: Primary Care Provider, Hospital Doctor, Surgeon . . "Provider Documentation" section prepared by Rui Goddard. . Capsule Filler Recommendations Capsule Filler Recommendations: PLEASE SEE SURGERY DISCHARGE INSTRUCTIONS VTE Core Measure Inpt VTE Proph given/why not?: Enoxaparin (Lovenox)SQ, SCD's
[2017-07-31 11:11] VITALS: BP 143/79; PULSE 84; TEMP 37; O2SAT 91
[2017-07-31] MEDS ORDERED: OXYC-57 PO (11:19)
--- NOTE | 2017-07-31 11:25 | Discharge Instructions ---
Discharge Instructions Date of Service Jul 31, 2017. Admission Reason for Admission: Cholecystitis Discharge Discharge Diagnosis / Problem: Same Discharge Goals Goal(s): Decrease discomfort, Improve function Activity Recommendations Activity Limitations: as noted below No heavy lifting over 20 pounds for 3-4 weeks No strenuous activity until cleared by surgeon No submerging incisions underwater for 2 weeks (no bathing, swimming, or hot tubs) No driving while taking narcotic pain medication or until you are pain free . Instructions / Follow-Up Instructions / Follow-Up you may shower in 24 hours. Sponge bath and wash hair in meantime Leave steri strips on incisions for 7 days and then remove. They may fall off on their own that is okay Walking and light activity is encouraged You will be given prescription for narcotic pain medication to take as needed. Follow-up in surgical office in 2 weeks, please call office at [phone] to make an appointment Current Hospital Diet Patient's current hospital diet: Diabetes Type 2 Diet Discharge Diet Recommended Diet: Regular Diet Procedures Procedures Performed: Laparoscopic Cholecystectomy Pending Studies Studies pending at discharge: yes List of pending studies: gallbladder pathology will be reviewed at follow up visit Laboratory Results Hemoglobin A1c Test 07/30/17 05:55 Range/Units Estimated Average Glucose 148 mg/dl Hemoglobin A1c 6.8 H 4.5-5.6 % Medical Emergencies . Who to Call and When: Medical Emergencies: If at any time you feel your situation is an emergency, please call 911 immediately. . Non-Emergent Contact Non-Emergency issues call your: Primary Care Provider, Surgeon Call Non-Emergent contact if: you have a fever, temperature is above 101, your pain is not controlled, your pain is worsening, your pain is unusual for you, wound has increased drainage, wound has increased redness, wound has increased pain . "Provider Documentation" section prepared by Emma Gomez. . VTE Core Measure Inpt VTE Proph given/why not?: Enoxaparin (Lovenox)SQ, SCD's
--- NOTE | 2017-07-31 11:30 | Surgery Progress Note ---
Surgery Progress Note Date of Service Jul 31, 2017. Subjective Post OP Day: 2 (s/p laparoscopic cholecystectomy) + ambulating, + diet, No feeling well, No complaints Ready to go home Very angry was told her could go home early this morning Objective Vital Signs: Date Time Temp Pulse Resp B/P (MAP) Pulse Ox O2 Delivery O2 Flow Rate FiO2 07/31/17 11:11 37.0 84 18 91 Room Air 07/31/17 09:24 91 Room Air 07/31/17 08:03 92 Room Air 07/31/17 07:45 Room Air 07/31/17 07:34 37.0 84 18 143/79 (100) 85 Room Air 07/30/17 23:19 91 Nasal Cannula 4.0 07/30/17 23:01 37.0 73 17 95/50 (65) 91 Nasal Cannula 4.0 07/30/17 15:38 92 Nasal Cannula 4.0 07/30/17 15:30 92 Nasal Cannula 4.0 07/30/17 15:20 37.0 78 24 94/54 (67) 82 Room Air General Appearance: WD/WN, no apparent distress Head: normocephalic, atraumatic Neck: trachea midline Respiratory/Chest: no respiratory distress, no accessory muscle use Laboratory Results: Results Past 24 Hours Test 07/30/17 12:09 07/30/17 17:02 07/30/17 20:20 07/31/17 07:02 Range/Units Bedside Glucose 186 152 167 70-99 mg/dl Sodium Level 136 136-145 mmol/L Potassium Level 3.6 3.5-5.1 mmol/L Chloride Level 102 98-107 mmol/L Carbon Dioxide Level 26 21-32 mmol/L Anion Gap 8.0 3-11 mmol/L Blood Urea Nitrogen 14 7-18 mg/dl Creatinine 1.09 0.60-1.40 mg/dl Est Creatinine Clear Calc Drug Dose 63.6 ml/min Estimated GFR () 81.0 Estimated GFR (Non- 69.9 BUN/Creatinine Ratio 12.4 10-20 Random Glucose 141 70-99 mg/dl Calcium Level 8.4 8.5-10.1 mg/dl Test 07/31/17 07:56 Range/Units Bedside Glucose 160 70-99 mg/dl Assessment & Plan POD # 2 s/p laparoscopic cholecystectomy - vitals stable - pain minimal, controlled - urinary retention resolved - tolerated diet Plan: discharge home today discharge instructions reviewed Follow-up surgical office in 2 weeks Rx for Percocet as needed Discussed with Dr. Basurto who agrees with above
--- NOTE | 2017-07-31 20:36 | Progress Note ---
Medicine Progress Note Date & Time of Visit: Jul 31, 2017 at 20:36 . Subjective Seen this morning and discharged by surgical team. O2 sats were low, but improved with incentive spirometry. 2-step pulse oximetry OK. . Objective Laboratory Results: Last 24 Hours Test 07/31/17 07:02 07/31/17 07:56 Sodium Level 136 mmol/L Potassium Level 3.6 mmol/L Chloride Level 102 mmol/L Carbon Dioxide Level 26 mmol/L Anion Gap 8.0 mmol/L Blood Urea Nitrogen 14 mg/dl Creatinine 1.09 mg/dl Est Creatinine Clear Calc Drug Dose 63.6 ml/min Estimated GFR () 81.0 Estimated GFR (Non- 69.9 BUN/Creatinine Ratio 12.4 Random Glucose 141 mg/dl Calcium Level 8.4 mg/dl Bedside Glucose 160 mg/dl Assessment & Plan CHOLECYSTITIS WITH CHOLELITHIASIS Laparoscopic cholecystectomy performed 07/[address] Basurto. DM TYPE 2 Well-controlled. Hgb A1C = 6.8. Held metformin during hospital stay. Insulin coverage ordered. HYPOTHYROIDISM Continue levothyroxine. BPH Resume alfuzosin. VTE PROPHYLAXIS No anticoagulants today because of surgery. SCD's. Ambulate. DISPOSITION Discharge to home. Internal Medicine follow-up with Dr. Brown. .
[2017-08-01] MEDS ORDERED: GABAPENTIN 600MG X1 DOSE PO SCH (12:00)
--- NOTE | 2017-08-02 07:56 | Discharge Summary ---
Discharge Summary Date of Service Aug 02, 2017. Discharge Summary Admission Date: Jul 28, 2017 at 20:47 Discharge Date: Jul 31, 2017 Discharge Disposition: Home Principal Diagnosis: cholelithiasis with acute cholecystitis . Secondary Diagnoses/Problems: Chronic and Resolved Medical Problems: (1) DM type 2 (diabetes mellitus, type 2) Status: Chronic (2) Dyslipidemia Status: Chronic (3) Hypothyroidism Status: Chronic Surgical Problems: (1) H/O discectomy Status: Chronic (2) History of inguinal hernia repair, bilateral Status: Chronic . Pending Studies/Follow-Up: path report from cholecystectomy pending at time of discharge . Medication Reconciliation New Medications: Oxycodone/Acetaminophen 5MG/325MG (Percocet 5MG/325MG) Tab 1 TABLET PO Q4H PRN for Pain, #18 TAB Continued Medications: Alfuzosin Hcl (Alfuzosin Hcl Er) 10 Mg Tab 1 TAB PO DAILY for 30 Days, #30 TAB 11 Refills Aspirin (Aspirin EC Low Dose) 81 Mg Ectab 81 MG PO DAILY Escitalopram Oxalate (Lexapro) 20 Mg Tab 20 MG PO QAM, TAB Levothyroxine Sodium (Levothyroxine Sodium) 75 Mcg Tab 75 MCG PO QAM Metformin Hcl Er (Glucophage Er) 500 Mg Tab 1000 MG PO BID, TAB Pravastatin Sod (Pravastatin Sodium) 10 Mg Tab 10 MG PO HS Sildenafil Citrate (Viagra) Unknown Strength Tab 1 TAB PO UD PRN for ed Admission Information HPI (per Admitting provider): 66 year old male who presents to the ED by referral of his PCP after outpatient US was positive for acute cholecystitis. Patient reports he has been sick for the past 8 days. Initially starting with cough, congestion, and headache. Dry non productive cough persists. Shortly after he developed mid epigastric pain that was relieved with TUMS. He then developed RUQ pain. He has had a very poor appetite and has had very little to eat or drinks. He denies nausea, vomiting, or diarrhea. He has had chills and episodes of diaphoresis but did not take his temperature. He denies chest pain and shortness of breath. No lightheadedness, dizziness, or syncopal event. No urinary symptoms. Patient saw his PCP today who ordered an outpatient RUQ US that showed acute cholecystitis. He was then referred to the ED for further evaluation. In the ED, labs show an ASHLEE and hyponatremia. Vitals are stable. . Physical Exam (per Admitting): General Appearance: WD/WN, no apparent distress Head: normocephalic, atraumatic Eyes: normal inspection, EOMI, sclerae normal ENT: hearing grossly normal, + pertinent finding (mucous membranes dry) Neck: supple, no JVD, trachea midline Respiratory/Chest: lungs clear, normal breath sounds, no respiratory distress Cardiovascular: regular rate, rhythm, no edema, normal peripheral pulses Abdomen/GI: normal bowel sounds, soft, no organomegaly, + tenderness (RUQ) Extremities/Musculoskelatal: normal inspection, no calf tenderness, normal capillary refill Neurologic/Psych: no motor/sensory deficits, alert, normal mood/affect, oriented x 3 Skin: normal color, warm/dry Hospital Course CHOLECYSTITIS WITH CHOLELITHIASIS Laparoscopic cholecystectomy performed 07/[address] Basurto. DM TYPE 2 Well-controlled. Hgb A1C = 6.8. Held metformin during hospital stay. Insulin coverage ordered. HYPOTHYROIDISM Continue levothyroxine. BPH Resume alfuzosin. VTE PROPHYLAXIS No anticoagulants today because of surgery. SCD's. Ambulate. DISPOSITION Discharge to home. Internal Medicine follow-up with Dr. Brown. . Discharge Instructions DI: Surgical v4 Discharge Instructions Date of Service Jul 31, 2017. Admission Reason for Admission: Cholecystitis Discharge Discharge Diagnosis / Problem: Same Discharge Goals Goal(s): Decrease discomfort, Improve function Activity Recommendations Activity Limitations: as noted below No heavy lifting over 20 pounds for 3-4 weeks No strenuous activity until cleared by surgeon No submerging incisions underwater for 2 weeks (no bathing, swimming, or hot tubs) No driving while taking narcotic pain medication or until you are pain free . Instructions / Follow-Up Instructions / Follow-Up you may shower in 24 hours. Sponge bath and wash hair in meantime Leave steri strips on incisions for 7 days and then remove. They may fall off on their own that is okay Walking and light activity is encouraged You will be given prescription for narcotic pain medication to take as needed. Follow-up in surgical office in 2 weeks, please call office at [phone] to make an appointment Current Hospital Diet Patient's current hospital diet: Diabetes Type 2 Diet Discharge Diet Recommended Diet: Regular Diet Procedures Procedures Performed: Laparoscopic Cholecystectomy Pending Studies Studies pending at discharge: yes List of pending studies: gallbladder pathology will be reviewed at follow up visit Laboratory Results Hemoglobin A1c Test 07/30/17 05:55 Range/Units Estimated Average Glucose 148 mg/dl Hemoglobin A1c 6.8 H 4.5-5.6 % Medical Emergencies . Who to Call and When: Medical Emergencies: If at any time you feel your situation is an emergency, please call 911 immediately. . Non-Emergent Contact Non-Emergency issues call your: Primary Care Provider, Surgeon Call Non-Emergent contact if: you have a fever, temperature is above 101, your pain is not controlled, your pain is worsening, your pain is unusual for you, wound has increased drainage, wound has increased redness, wound has increased pain . "Provider Documentation" section prepared by Emma Gomez. . VTE Core Measure Inpt VTE Proph given/why not?: Enoxaparin (Lovenox)SQ, SCD's DI: Medical v4 Discharge Instructions Date of Service Jul 31, 2017. Admission Reason for Admission: gall stones and cholecystitis (inflammation of gallbladder) . Discharge Discharge Diagnosis / Problem: gall stones and cholecystitis (inflammation of gallbladder). Discharge Goals Goal(s): Decrease discomfort, Improve disease control Activity Recommendations Activity Limitations: as noted below Lifting Limitations: gradually increase as tolerated . Instructions / Follow-Up Instructions / Follow-Up APPOINTMENTS: GENERAL SURGERY INTERNAL MEDICINE 08/17/2017 2:20 PM Brown Brown, OTHER INSTRUCTIONS: Seek medical attention if you have: * temperature above 101 * chest pain or trouble breathing * abdominal pain, nausea, vomiting * diarrhea, dark stools or bloody stools * any unanswered questions or concerns Call 911 if symptoms are severe. Call if you have any questions or problems. My cell # is [phone]. You can also reach a [facility] hospitalist on duty at [facility] 24 hours a day by calling [phone]. Please take good care of yourself. Rui Goddard . Current Hospital Diet Patient's current hospital diet: Diabetes Type 2 Diet Discharge Diet Recommended Diet: AHA Diet (Heart Healthy), Diabetes Type 2 Diet, Low Fat Diet Procedures Procedures Performed: Laparoscopic Cholecystectomy Pending Studies Studies pending at discharge: yes List of pending studies: GALLBLADDER PATHOLOGY Laboratory Results Hemoglobin A1c Test 07/30/17 05:55 Range/Units Estimated Average Glucose 148 mg/dl Hemoglobin A1c 6.8 H 4.5-5.6 % Medical Emergencies . Who to Call and When: Medical Emergencies: If at any time you feel your situation is an emergency, please call 911 immediately. . Non-Emergent Contact Non-Emergency issues call your: Primary Care Provider, Hospital Doctor, Surgeon . . "Provider Documentation" section prepared by Rui Goddard. . Golf Caddie Recommendations Golf Caddie Recommendations: PLEASE SEE SURGERY DISCHARGE INSTRUCTIONS VTE Core Measure Inpt VTE Proph given/why not?: Enoxaparin (Lovenox)SQ, SCD's . Additional Copies To Brown Brown D.O.; Mart Basurto MD
== END 2017-07-31 11:49 | disposition home or self-care (01) | DRG 418 ==
LOC: C.EDB 17:13 → C.3E 20:47 → ENRESERV 20:58
PROVIDERS: ADMIT Hospitalist; ATTEND Hospitalist
PROC: 0FT44ZZ Resection of Gallbladder, Percutaneous Endoscopic Approach (ICD-10-PCS; principal; 2017-07-29 07:30)
DX: K80.00 Calculus of gallbladder with acute cholecystitis without obstruction (principal); N17.9 Acute kidney failure, unspecified; E87.1 Hypo-osmolality and hyponatremia; E87.6 Hypokalemia; E86.0 Dehydration; I10 Essential (primary) hypertension; E11.9 Type 2 diabetes mellitus without complications; E78.5 Hyperlipidemia, unspecified; E03.9 Hypothyroidism, unspecified; N40.0 Benign prostatic hyperplasia without lower urinary tract symptoms; Z79.82 Long term (current) use of aspirin; Z79.84 Long term (current) use of oral hypoglycemic drugs; Z79.899 Other long term (current) drug therapy; Z88.2 Allergy status to sulfonamides